=== PATIENT | female | born 1950 | race Caucasian/White ===

== ENCOUNTER 2017-12-23 07:46 | Inpatient (IN) | payer OTHER ==
[~2017-12-23] VITALS: Ht 167.6 cm; Wt 66.9 kg
[~2017-12-23 07:46] MED LIST: ALDACTONE25 MG PO; AMOXICILLIN500 M2 PO; AQUACEL1 EACH TOP; ASPIRIN EC81 M1 PO; AUGMENTIN 500-1 EACH PO; CALCIUM + D SO1 EACH PO; CLORAZEPATE DI7.5 M1 PO; COUMADIN1 M1 PO; FIBER-STAT15 GM/30 M PO; FUROSEMIDE40 M1 PO; LASIX20 M1 PO; LIPITOR40 M1 PO; METOPROLOL SUC100 M2 PO; MULTIPLE VITAM1 EAC2 PO; MYRBETRIQ25 M1 PO; NYSTATIN15 GM TOP; OMEPRAZOLE20 M3 PO; PAIN RELIEVER500 MG PO; PREDNISONE5 M1 PO; PROBIOTIC1 EACH PO; TYLENOL PM EX-1 EACH PO; WARFARIN SODIUM1 M1 PO; WARFARIN SODIUM2 M1 PO
--- NOTE | 2017-12-23 07:50 | ED GENERAL ADULT ---
History of Present Illness General Chief Complaint: Lower Extremity Problems Stated Complaint: BIBA L HEEL PAIN Source: patient Exam Limitations: no limitations Vital Signs & Intake/Output Vital Signs & Intake/Output Vital Signs Date Time Temp Pulse Resp B/P B/P Pulse O2 O2 Flow FiO2 Mean Ox Delivery Rate 12/23 1802 99.0 86 16 110/60 96 Room Air 12/23 1710 98.6 101 16 104/52 97 Room Air 12/23 1509 98.3 88 14 91/51 97 Room Air 12/23 1300 98.2 12/23 1110 102.0 12/23 0958 99.8 110 20 104/54 96 Room Air 12/23 0820 94 Room Air 12/23 0752 99.9 116 20 102/52 95 Room Air Allergies Coded Allergies: latex (Severe, ITCHING 01/19/16) adhesive tape (PAPER TAPE ONLY 01/19/16) cephalexin (SWELLING OF THE FACE 01/19/16) clindamycin (UNKNOWN 01/19/16) strawberry (HIVES/RASH 01/19/16) carvedilol (Severe, SEVERE DIARRHEA 11/22/16) Reconcile Medications Acetaminophen (Pain Reliever) 500 MG CAPSULE 1 CAP PO PRN PAIN (Reported) Acetaminophen/Diphenhydramine (Tylenol Pm Ex-Strength Caplet) 1 EACH TABLET 0.5 TAB PO PRN SLEEP/PAIN (Reported) Amoxicillin 500 MG CAPSULE 4 CAP PO AD PRIOR TO DENTAL APPT (Reported) Aspirin (Ecotrin*) 81 MG TABLET.DR 1 TAB PO DAILY HEART/BLOOD (Reported) Atorvastatin Calcium (Lipitor) 40 MG TABLET 1 TAB PO QPM CHOLESTEROL ( Reported) Augmentin (Augmentin 500-125 Tablet) 500 MG-125 MG TABLET 1 TAB PO BID cellulitis Calcium Carb/Vitamin D3/Vit K1 (Calcium + D Soft Chewable Tab) 500 MG CALCIUM-1, 000 UNIT-40 MCG TAB.CHEW 0.5 TAB PO QAM SUPPLEMENT (Reported) Clorazepate Dipotassium 7.5 MG TABLET 1 TAB PO PRN ANXIETY (Reported) Fructooligosaccharides/Polydex (Fiber-Stat 15 Gm/30 Ml Liquid) (Unknown Strength ) LIQUID (Unknown Dose) PO QAM SUPPLEMENT (Reported) Furosemide (Lasix) 20 MG TABLET 1 TAB PO 1330 DIUETIC (Reported) Furosemide 40 MG TABLET 1 TAB PO QAM DIURETIC (Reported) Hydrocolloid Dressing (Aquacel) 0.39" X 18" BANDAGE 1 LYNDSEY TOP DAILY ulcer Lactobacillus Acidophilus (Probiotic) (Unknown Strength) CAPSULE (Unknown Dose ) PO QAM PROBIOTIC (Reported) Losartan Potassium 25 MG TABLET 1 TAB PO DAILY FOR MY HEART (Reported) Metoprolol Succinate 100 MG TAB.ER.24H 1 TAB PO QAM HEART/BP (Reported) Mirabegron (Myrbetriq) 25 MG TAB.ER.24H 1 TAB PO QAM BLADDER (Reported) Multivitamin (Multiple Vitamins) 1 EACH TABLET 1 TAB PO DAILY SUPPLEMENT ( Reported) Nystatin 100,000 UNIT/GRAM OINT...G. 1 LYNDSEY TOP PRN SKIN (Reported) apply to affected area(s) Omeprazole 20 MG TABLET.DR 1 TAB PO DAILY GI (Reported) Prednisone 5 MG TABLET 1 TAB PO BID RA (Reported) Spironolactone (Aldactone) 25 MG TABLET 12.5 MG PO QAM DIURETIC (Reported) Valsartan (Diovan) 40 MG TABLET 1 TAB PO QAM BP (Reported) Warfarin Sodium 1 MG TABLET 1 TAB PO QPM BLOOD THINNER (Reported) Triage Nurses Notes Reviewed? yes Onset: Abrupt Duration: day(s): Timing: single episode today HPI: 67 year old female presents to the emergency department via ambulance for left heel pain and a sore on her left great toe since yesterday. She states a history of arthritis, she has bilateral dorsalis pedis pulses. Both feet are the same temperature. She does have a small callus with a abrasion on it on the left great toe inferior aspect. Of significance is that she has substantial left heel soft tissue swelling and extreme tenderness. Past History Travel History Traveled to [place] past 21 day No Medical History Any Pertinent Medical History? see below for history Neurological: TREMORS EENT: NONE Cardiovascular: hypertension, myocardial infarction, STENTS Respiratory: NONE Gastrointestinal: NONE Hepatic: NONE Renal: NONE Musculoskeletal: rheumatoid arthritis, BROKEN PELVIS Psychiatric: NONE Endocrine: NONE Blood Disorders: NONE Cancer(s): NONE ADMINISTRATIVE MANAGER/Reproductive: NONE Tetanus Vaccine: 12/27/11 Surgical History Surgical History: knee replacement Psychosocial History Who do you live with Spouse Services at Home N/A What is your primary language Slovenian Family History Hx Contributory? No Review of Systems Review of Systems Constitutional: Reports: see HPI. Denies: fever. EENTM: Reports: no symptoms. Denies: blurred vision, double vision, visual changes. Respiratory: Reports: no symptoms. Denies: short of breath. Cardiovascular: Reports: no symptoms. Denies: chest pain, edema. GI: Reports: no symptoms. Genitourinary: Reports: no symptoms. Musculoskeletal: Reports: see HPI. Skin: Reports: no symptoms. Neurological/Psychological: Reports: no symptoms. Hematologic/Endocrine: Reports: no symptoms. Immunologic/Allergic: Reports: no symptoms. All Other Systems: Reviewed and Negative Physical Exam Physical Exam General Appearance: well developed/nourished, alert, awake, moderate distress Head: atraumatic, normal appearance Eyes: Bilateral: normal appearance, PERRL, EOMI. Ears, Nose, Throat: normal ENT inspection Neck: normal inspection, full range of motion Respiratory: normal breath sounds, no respiratory distress, lungs clear Cardiovascular: regular rate/rhythm Peripheral Pulses: 4+ radial (R), 4+ radial (L) Gastrointestinal: soft, non-tender Back: normal inspection, normal range of motion Extremities: Left calcaneaus swelling and pain,ulceration on the left great toe Neurologic/Psych: no motor/sensory deficits, awake, alert, oriented x 3 Skin: intact, normal color, warm/dry Core Measures ACS in differential dx? No CVA/TIA Diagnosis: No Sepsis Present: No Sepsis Focused Exam Completed? No Progress Differential Diagnoses I considered the following diagnoses in my evaluation of the patient: [ Osteomyelitis, fracture, arthritis] Plan of Care: Orders Procedure Date/time Status CBC WITHOUT DIFFERENTIAL 12/24 0600 Active BASIC ELECTROLYTES PLUS BUN&CR 12/24 0600 Active Regular Diet 12/23 D Active URINALYSIS 12/23 2005 Active BLOOD CULTURE 12/23 2002 Active LACTIC ACID 12/23 1928 Active Weight 12/23 1820 Active Vital Signs 12/23 1820 Active Teach/Educate 12/23 182 Active Pain Treatment and Response 12/23 182 Active Nutritional Intake, Monitor 12/23 1820 Active Isolation 12/23 1820 Active Intake & Output 12/23 1820 Active Patient Care Conference 12/23 1820 Active Activity/Ambulation 12/23 1820 Active Pathway - chart 12/23 1802 Active Pathway - chart 12/23 1801 Active House Staff 12/23 1801 Active LACTIC ACID 12/23 1628 Complete Patient Data 12/23 1618 Active Patient Data 12/23 1617 Active EKG 12/23 1538 Active ED Holding Orders 12/23 1536 Active Admit to inpatient 12/23 1536 Active Vital Signs 12/23 1536 Active Code Status 12/23 1536 Active Saline Lock 12/23 0900 Active WESTERGREN SED RATE 12/23 0900 Complete COMPREHENSIVE METABOLIC PANEL 12/23 09 Complete CBC WITHOUT DIFFERENTIAL 12/23 09 Complete Intake & Output 12/23 0818 Active XRY-PORTABLE CHEST XRAY 12/23 UNK Active VTE Mechanical Prophylaxis 12/23 UNK Active MISSING MEDICATION FORM 12/23 UNK Active Current Medications Sig/Narendra Start time Last Medication Dose Stop Time Status Admin Enoxaparin Sodium 40 MG DAILY 12/24 0900 AC (Lovenox) Prednisone 40 MG DAILY 12/23 1901 AC Acetaminophen 650 MG ONCE ONE 12/23 1100 CAN (Tylenol) 12/23 1101 Laboratory Tests 12/23/17 1658: Lactic Acid 1.0 12/23/17 0945: Anion Gap 12, Estimated GFR > 60, BUN/Creatinine Ratio 24.4, Glucose 79, Calcium 8.2 L, Total Bilirubin 1.1, AST 24, ALT 36, Alkaline Phosphatase 71, Total Protein 5.9 L, Albumin 3.0 L, Globulin 2.9, Albumin/Globulin Ratio 1.0 L, CBC w Diff MAN DIFF ORDERED, RBC 3.77 L, MCV 87.1, MCH 28.9, MCHC 33.2, RDW 17.0 H , MPV 6.8 L, Gran % 91.3 H, Lymphocytes % 7.2 L, Monocytes % 0.9 L, Eosinophils % 0.1, Basophils % 0.5, Absolute Granulocytes 14.9 H, Absolute Lymphocytes 1.2, Absolute Monocytes 0.1, Absolute Eosinophils 0, Absolute Basophils 0.1, Platelet Estimate ADEQUATE, Normocytic RBCs VERIFIED, Normochromic RBCs VERIFIED, ESR Westergren 105 H Microbiology 12/23 2002 BLOOD: Blood Culture - ORD Initial ED EKG: NSR Prior EKG: unchanged Departure Departure Disposition: STILL A PATIENT Condition: Stable Clinical Impression Primary Impression: Rheumatoid arthritis Secondary Impressions: Leukocytosis Referrals: Tate Rivero DO (PCP/Family) Departure Forms: Customer Survey General Discharge Information Comments IMPRESSION: 1. Difficult exam given osteopenia and flexion deformities in the forefoot. 2. As discussed above, there is subtle cortical irregularity at the plantar surface of the calcaneus with overlying soft tissue swelling, raising the suspicion of osteomyelitis. Close clinical correlation is requested. This can be further assessed with MRI scan. 2. Suspect postsurgical changes at the second, third and fourth metatarsophalangeal joints with resections of the metatarsal heads. 3. Hammertoe deformities of the toes is seen and there appears to be fusion across the first and the fifth metatarsophalangeal joint. 4. There is likely fusion across several of the lateral aspects of the intertarsal joints. DICTATED BY: Nuria Torres MD DATE/TIME DICTATED:12/23/17924 HEATER WORKER:FAIZA DATE/TIME TRANSCRIBED:12/23/17924 CONFIDENTIAL, DO NOT COPY WITHOUT APPROPRIATE AUTHORIZATION. <Electronically signed in Other Vendor System> SIGNED BY: Nuria Torres MD 0937 The patient's foot x-ray was concerning for osteomyelitis. She has leukocytosis and elevated sedimentation rate she does admit to recent fevers. MRI was done and was inconclusive to exclude osteomyelitis.she was therefore admitted to the hospital for podiatry consultation and further evaluation. Admission Note Spoke With: Lanre Chaudhry MD Documentation of Exam: Documentation of any treatments & extenuating circumstances including Concerns Regarding Discharge (functional status, medication knowledge or non-compliance, living conditions, etc.) that warrant an admission rather than observation: [The patient needs admission for podiatry consultation, infectious disease consultation, consideration of surgical biopsy and/or debridement to exclude osteomyelitis] The family requested I call Dr. Lopez, he was paged. Critical Care Note Critical Care Note Critical Care Time: non-applicable
--- NOTE | 2017-12-23 09:37 | RADIOLOGY REPORT ---
EXAMINATION: CR CALCANEUS, LEFT CR HEEL, LEFT CLINICAL INFORMATION: Left foot pain and swelling. Rule out fracture. COMPARISON: Left calcaneus films dated 07/17/2007. TECHNIQUE: Lateral and axial views of the left calcaneus and frontal and lateral views of the left foot were obtained. FINDINGS: No acute fracture or dislocation. Diffuse osteopenia. Large plantar calcaneal spur is seen. There is irregularity of the inferior cortical margin of the calcaneus, which is indistinct in places and new from prior exam, suggesting subtle erosions. Overlying soft tissue swelling is seen. Findings are nonspecific but raise the suspicion of osteomyelitis. There are flexion deformities of the toes, limiting assessment. There appears to be fusion across the first and possibly the fifth metatarsophalangeal joint. Plantar subluxations are seen at the second through fifth metatarsophalangeal joints, consistent with hammertoe deformities. 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 Talar beaking is noted. There is indistinctness of the cuneiforms and there appears to be partial fusion across the lateral aspect of the tarsal bones. IMPRESSION: 1. Difficult exam given osteopenia and flexion deformities in the forefoot. 2. As discussed above, there is subtle cortical irregularity at the plantar surface of the calcaneus with overlying soft tissue swelling, raising the suspicion of osteomyelitis. Close clinical correlation is requested. This can be further assessed with MRI scan. 2. Suspect postsurgical changes at the second, third and fourth metatarsophalangeal joints with resections of the metatarsal heads. 3. Hammertoe deformities of the toes is seen and there appears to be fusion across the first and the fifth metatarsophalangeal joint. 4. There is likely fusion across several of the lateral aspects of the intertarsal joints.
[2017-12-23 09:52] LABS: ABSOLUTE BASOPHIL COUNT 0.1 /CUMM (0.0-0.2); ABSOLUTE EOSINOPHIL COUNT 0 /CUMM (0.0-0.7); ABSOLUTE GRANULOCYTE CT 14.9 /CUMM (1.4-6.5); ABSOLUTE LYMPH COUNT 1.2 /CUMM (1.2-3.4); ABSOLUTE MONOCYTE COUNT 0.1 /CUMM (0.10-0.60); BASOPHIL % 0.5 % (0.0-2.0); EOSINOPHIL % 0.1 % (0-5); GRANULOCYTE % 91.3 % (42.2-75.2); HEMATOCRIT 32.9 % (37-47); MEAN CORPUSCULAR HGB 28.9 PG (27.0-31.0); MEAN CORPUSCULAR HGB CONC 33.2 G/DL (33.0-37.0); MEAN CORPUSCULAR VOLUME 87.1 FL (81.0-99.0); MEAN PLATELET VOLUME 6.8 FL (7.4-10.4); PLATELET COUNT 287 /CUMM (130-400); RED BLOOD CELL CT 3.77 /CUMM (4.20-5.40); WHITE BLOOD CELL COUNT 16.3 /CUMM (4.8-10.8)
[2017-12-23] MEDS ORDERED: LOSARTAN POTASS25 M1 PO (13:25)
--- NOTE | 2017-12-23 14:14 | MRI REPORT ---
EXAMINATION: MR FOOT WITHOUT AND WITH CONTRAST, LEFT CLINICAL INFORMATION: Left heel pain and swelling. COMPARISON: Radiographs 12/23/2017 TECHNIQUE: MRI without and with intravenous administration of 7 mL Gadavist is performed on a high-field scanner. FINDINGS: There is a complex collection with unenhancing debris and fluid measuring approximately 4.4 right 3.5 x 2.1 cm throughout medial aspect of the heel pad. The fluid projects through a 5 mm full-thickness tear/defect of the origin of the middle slip of the plantar fascia where there is a heel spur, and cortical irregularity which may be in part postsurgical. Correlate clinically. Along this cortical irregularity, there is no significant marrow edema or fatty marrow replacement to indicate active osteomyelitis. However, at the posterior aspect, there is a tubular/linear extension of T2 signal hyperintensity extending into the posterior aspect of the calcaneus with surrounding bone marrow edema and enhancement, and slight loss of T1 marrow signal intensity suggesting an intraosseous sinus tract with mild osteomyelitis. Anteromedially, there is an additional tubular fluid signal intensity structure extending into the calcaneus although this lacks surrounding edema or enhancement. There is diffuse subcutaneous edema. Prominent accessory navicular. 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 No ankle joint effusion or talar OCD. The Achilles tendon, posterior tibialis tendon, peroneal tendons, flexor and extensor tendons appear intact. IMPRESSION: Complex subcutaneous collection of the heel pad extending through a full-thickness defect/tear of the plantar fascia origin, and along the plantar aspect of the calcaneus where there is chronic appearing cortical irregularity. At the posterior aspect, there is the appearance of a sinus tract extending 1.5-2.0 cm into the calcaneus with surrounding bone marrow edema and enhancement.
--- NOTE | 2017-12-23 16:56 | History & Physical ---
Alix Howard 12/23/17 8620: General Information and HPI MD Statement: I have seen and personally examined FLORENCIA DAVIS and documented this H& P. The patient is a 67 year old F who presented with a patient stated chief complaint of intractable heel pain . 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 According to the patient, she was resting in her recliner in the evening yesterday. At about 7, she got up to use the bathroom, and found her to be severely limited by the pain that came on suddenly. It did not radiate up her leg or down her foot, has not gotten better or worse since. Patient reports that she has frequent rheumatoid arthritis flares, but none of the flares that she has never had pain as severe as her heel pain at present. Notably, the patient states she got a "stomach virus" last week. She had severe diarrhea, having a bowel movement almost every 20 minutes last Thursday, which was yellowish, no mucus, no blood. She had a T-max of 102.5 and her temperature has been fluctuating between 99-102 throughout the last week. The patient states the diarrhea has greatly improved, but she does not have an appetite. The patient states that she got her blood work done last month and her blood glucose and HbA1c are within normal limits. The patient denies weakness, chest pain, palpitations, shortness of breath, bowel or bladder symptoms. Allergies/Medications Allergies: Coded Allergies: latex (Severe, ITCHING 01/19/16) adhesive tape (PAPER TAPE ONLY 01/19/16) cephalexin (SWELLING OF THE FACE 01/19/16) clindamycin (UNKNOWN 01/19/16) strawberry (HIVES/RASH 01/19/16) carvedilol (Severe, SEVERE DIARRHEA 11/22/16) Home Med list Acetaminophen (Pain Reliever) 500 MG CAPSULE 1 CAP PO PRN PAIN (Reported) Acetaminophen/Diphenhydramine (Tylenol Pm Ex-Strength Caplet) 1 EACH TABLET 0.5 TAB PO PRN SLEEP/PAIN (Reported) Amoxicillin 500 MG CAPSULE 4 CAP PO AD PRIOR TO DENTAL APPT (Reported) Aspirin (Ecotrin*) 81 MG TABLET.DR 1 TAB PO DAILY HEART/BLOOD (Reported) Atorvastatin Calcium (Lipitor) 40 MG TABLET 1 TAB PO QPM CHOLESTEROL ( Reported) Augmentin (Augmentin 500-125 Tablet) 500 MG-125 MG TABLET 1 TAB PO BID cellulitis Calcium Carb/Vitamin D3/Vit K1 (Calcium + D Soft Chewable Tab) 500 MG CALCIUM-1, 000 UNIT-40 MCG TAB.CHEW 0.5 TAB PO QAM SUPPLEMENT (Reported) Clorazepate Dipotassium 7.5 MG TABLET 1 TAB PO PRN ANXIETY (Reported) Fructooligosaccharides/Polydex (Fiber-Stat 15 Gm/30 Ml Liquid) (Unknown Strength ) LIQUID (Unknown Dose) PO QAM SUPPLEMENT (Reported) Furosemide (Lasix) 20 MG TABLET 1 TAB PO 1330 DIUETIC (Reported) Furosemide 40 MG TABLET 1 TAB PO QAM DIURETIC (Reported) Hydrocolloid Dressing (Aquacel) 0.39" X 18" BANDAGE 1 LYNDSEY TOP DAILY ulcer Lactobacillus Acidophilus (Probiotic) (Unknown Strength) CAPSULE (Unknown Dose ) PO QAM PROBIOTIC (Reported) Losartan Potassium 25 MG TABLET 1 TAB PO DAILY FOR MY HEART (Reported) Metoprolol Succinate 100 MG TAB.ER.24H 1 TAB PO QAM HEART/BP (Reported) Mirabegron (Myrbetriq) 25 MG TAB.ER.24H 1 TAB PO QAM BLADDER (Reported) Multivitamin (Multiple Vitamins) 1 EACH TABLET 1 TAB PO DAILY SUPPLEMENT ( Reported) Nystatin 100,000 UNIT/GRAM OINT...G. 1 LYNDSEY TOP PRN SKIN (Reported) apply to affected area(s) Omeprazole 20 MG TABLET.DR 1 TAB PO DAILY GI (Reported) Prednisone 5 MG TABLET 1 TAB PO BID RA (Reported) Spironolactone (Aldactone) 25 MG TABLET 12.5 MG PO QAM DIURETIC (Reported) Valsartan (Diovan) 40 MG TABLET 1 TAB PO QAM BP (Reported) Warfarin Sodium 1 MG TABLET 1 TAB PO QPM BLOOD THINNER (Reported) Past History Travel History Traveled to [place] past 21 day No Medical History Neurological: TREMORS EENT: NONE Cardiovascular: hypertension, myocardial infarction, STENTS Respiratory: NONE Gastrointestinal: NONE Hepatic: NONE Renal: NONE Musculoskeletal: rheumatoid arthritis, BROKEN PELVIS Psychiatric: NONE Endocrine: NONE Blood Disorders: NONE Cancer(s): NONE CHEMICAL SPRAYER/Reproductive: NONE Tetanus Vaccine: 12/27/11 Surgical History Surgical History: knee replacement Past Family/Social History Psychosocial History Services at Home: N/A ETOH Use: denies use Illicit Drug Use: denies illicit drug use Review of Systems Review of Systems Constitutional: Reports: fever. Denies: chills, malaise. Cardiovascular: Denies: orthopena, palpitations, peripheral edema. Respiratory: Denies: cough, hemoptysis, short of breath. GI: Reports: diarrhea, changes in stool. Denies: abdominal pain, constipation, distention, bowel incontinence, melena, nausea, bloody stool, vomiting. Musculoskeletal: Reports: joint pain, joint swelling. Skin: Denies: change in skin color, change in hair/nails. Neurological/Psychological: Denies: anxiety, cognitive dysfunction, confusion, depressed, emotional problems , headache, numbness, paresthesia, tingling. Hematologic/Endocrine: Denies: bleeding, polyuria, polydipsia. Exam & Diagnostic Data Last 24 Hrs of Vital Signs/I&O Vital Signs Date Time Temp Pulse Resp B/P B/P Pulse O2 O2 Flow FiO2 Mean Ox Delivery Rate 12/23 1710 98.6 101 16 104/52 97 Room Air 12/23 1509 98.3 88 14 91/51 97 Room Air 12/23 1300 98.2 12/23 1110 102.0 12/23 0958 99.8 110 20 104/54 96 Room Air 12/23 0820 94 Room Air 12/23 0752 99.9 116 20 102/52 95 Room Air Intake & Output 12/23 1600 12/23 0800 12/23 0000 Intake Total 0 Output Total Balance 0 Intake, Oral 0 Patient 145 lb Weight Weight Reported by Patient Measurement Method Physical Exam General Appearance Alert, Oriented X3, Cooperative, No Acute Distress Skin No Rashes Skin Temp/Moisture Exam: Warm/Dry HEENT Atraumatic Cardiovascular Regular Rate, Normal S1, Normal S2 Lungs Clear to Auscultation Abdomen Normal Bowel Sounds, Soft Neurological Normal Gait, Normal Speech, Strength at 5/5 X4 Ext, head nodding tremors Extremities calcaneal swelling and tenderness Vascular Pulses Symmetrical, dorsalis pedis pulse present on both feet Assessment/Plan Assessment: 57-year-old female with past medical history of hypertension, MD, rheumatoid arthritis, 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 On examination, she has multiple deformities in her hands and feet her rheumatoid arthritis. There is significant swelling, tenderness and the left calcaneum. Vitals in the ED were T-max: 102, BP: 91/51, HR: 88 Her white blood count: 16.3, Hb: 10.9, and Na: 132, K: 3.4. Her creatinine was 0.9, calcium: 8.2, total protein: 5.9 with an albumin of 3.0. Her ESR is 105. Lactate was normal at 1 Foot X-ray IMPRESSION: 1. Difficult exam given osteopenia and flexion deformities in the forefoot. 2. As discussed above, there is subtle cortical irregularity at the plantar surface of the calcaneus with overlying soft tissue swelling, raising the suspicion of osteomyelitis. Close clinical correlation is requested. This can be further assessed with MRI scan. 2. Suspect postsurgical changes at the second, third and fourth metatarsophalangeal joints with resections of the metatarsal heads. 3. Hammertoe deformities of the toes is seen and there appears to be fusion across the first and the fifth metatarsophalangeal joint. 4. There is likely fusion across several of the lateral aspects of the intertarsal joints. Foot MRI Complex subcutaneous collection of the heel pad extending through a full-thickness defect/tear of the plantar fascia origin, and along the plantar aspect of the calcaneus where there is chronic appearing cortical irregularity. At the posterior aspect, there is the appearance of a sinus tract extending 1.5-2.0 cm into the calcaneus with surrounding bone marrow edema and enhancement. An MRI dated 08/02/2007 has been made available for comparison. The complex collection/structure along the heel pad was present in 2007 and appears similar, although now has a fluid signal component. Additionally, with the clinical history of rheumatoid arthritis as per Dr. Meyers, this most likely represents a large, chronic rheumatoid nodule. The cortical irregularity along the plantar surface of the calcaneus is similar with no new or active erosion. The tubular-appearing fluid signal intensity structures within the calcaneus are also present on the previous study, possibly prominent penetrating vessels or old sinus tracts. However, the new fluid signal component and surrounding soft tissue edema of the rheumatoid nodule suggest an active inflammatory process likely related to the patient's rheumatoid arthritis, which likely accounts for the marrow edema and enhancement that surrounds the more posterior of the sinus tracts. In the absence of a new soft tissue defect/wound, infection and osteomyelitis is less likely. Problems 1. Left heel swelling and pain (osteomyelitis vs RA flare) 2. Rheumatoid arthritis 3. Hypertension 4. Leukocytosis 4. Chronic steroid use PLAN: 1. Left heel swelling and pain -An MRI showed the presence of complex collection/structure along the pad with the fluid component. The collection/structure is chronic, the fluid combination surrounding soft tissue edema of a presumed rheumatoid nodule is a recent finding. -Leukocytosis of 16.3: Recent gastroenteritis versus steroid-induced demargination versus osteomyelitis versus rheumatoid flare -She does not have appear to have risk factors for osteomyelitis: no trauma, no diabetes, recent infection -He does have an ESR of 105, we will start her on high-dose corticosteroids, and reassess -We will aspirate the joint fluid for analysis and culture sensitivity in the AM tomorrow. -ID consult appreciated. We will order blood cultures, urine cultures. We would hold off on the antibiotics for now. -We will order a chest X-ray -Rheumatology consult in the morning 2. Lekocytosis -Steroid induced vs rhematoid flare vs Infection -We will hold off on antibiotics pending urine cultures, blood cultures and chest X-ray -Trend CBC 3. Hypertension We will continue the patient on her home meds DVT prophylaxis Code status: Full code As Ranked By This Provider Problem List: 1. Leukocytosis 2. Rheumatoid arthritis 3. Heel pain Core Measures/Misc (01/25) Acute Coronary Syndrome ACS Diagnosis: No Congestive Heart Failure Congestive Heart Failure Diagnosis No Cerebrovascular Accident CVA/TIA Diagnosis: No VTE (View Protocol) VTE Risk Factors Age>40 No Mechanical VTE Prophylaxis d/t N/A MechProphylax Ordered No VTE Pharm Prophylaxis d/t NA PharmProphylax ordered Sepsis (View protocol) Sepsis Present: No If YES complete Sepsis Event Note If YES complete Sepsis Event Note Maurisio NAVARRO,[facility] 12/23/170: Core Measures/Misc (01/25) Sepsis (View protocol) If YES complete Sepsis Event Note If YES complete Sepsis Event Note Resident Review Statement Resident Statement: examined this patient, discussed with merchandising internship, agreed with merchandising internship Other Findings: 67-year-old lady with a past medical history significant for hypertension, hyperlipidemia, CAD status post stent placement in 2010, rheumatoid arthritis on prednisone 5 mg daily, previously history of MRSA osteomyelitis, presented to [place] ED with 1 day acute onset of left heel pain. No report of trauma. She did report a week history of chills with associated upper respiratory infection. At the ED she was noted to have a temperature of 102, tachycardia with a heart rate of 110, and an elevated white count of 16.3. MRI of the left heel was remarkable for complex subcutaneous collection and chronic appearing cortical irregularity with appearance of a sinus tract in the posterior aspect. A review of her old MRI dated July 2007 showed that most of the patient finding today are chronic without any change with the exception of soft tissue edema the rheumatoid nodule. Impression * Fevers. Most likely secondary to rheumatoid flareup given the history of rheumatoid arthritis. However the MAXIMUM TEMPERATURE of 102, despite being on prednisone is always a concern for possible infectious etiology such as wound infection/osteomyelitis. However the acute onset within 1 day of the calcaneal pain and swelling goes against osteomyelitis or a brewing infection. She does have a somewhat chronic appearing nonhealing left great toe ulcer at the plantar aspect, which could be a source of infection. * Left heel pain with the sudden acute onset. No erythema or cellulitic appearance which most likely suggest infection. She is most likely experiencing a rheumatoid arthritis flare up, which seems to be supported by the timeframe of her symptoms (acute onset). * Leukocytosis. Most likely secondary to stress due to stress demargination from chronic prednisone use. * Mild hyponatremia. Most likely secondary to Lasix use and decreased fluid intake. * Mild hypokalemia. Possibly secondary to Lasix use Plan Admit to general medicine floor Replenish potassium Will give 500 mls normal saline for hydration (patient does take Lasix at home for lower extremity edema, but we do not have any information on high last echo/ EF). Will encourage increased oral fluid intake. We'll hold off on the furosemide Increase prednisone dose to 40 mg to treat for rheumatoid arthritis flareup Acetaminophen as needed for fevers Hold off any antibiotics per ID recommendation Blood cultures 2 UA and urine culture Chest x-ray Will trend CBC tomorrow morning Will obtain rheumatology recommendations Orthopedic (DR LEWIS consult, per pt preference). CODE STATUS; full DVT prophylaxis: Patient is on Coumadin Lanre Chaudhry MD 12/23/17 2227: Core Measures/Misc (01/25) Sepsis (View protocol) If YES complete Sepsis Event Note If YES complete Sepsis Event Note Attending MD Review Statement Attending Statement Attending MD Statement: examined this patient, discuss w/resident/PA/MAKE READY MECHANIC, agreed w/resident/PA/MAKE READY MECHANIC, discussed with family, reviewed EMR data (avail), reviewed images, amended to note Attending Assessment/Plan: The patient is a 67 yo female with h/o HTN, CAD (s/p MD/stents), s/p TKR, h/o RA (on chronic Prednisone therapy), h/o non-healing left 1st toe ulcer (followed by podiatry) who presented with sudden onset of severe left heel pain. She had 1 week h/o fevers and diarrhea (felt to be viral) prior to this. In the ED had elevated WBC of 16 K and spiked a temperature of 102 degrees (on Prednisone therapy). MRI of foot done shows complex collection along heel pad- similar to 2008 study. There is also evidence of soft tissue edema. Physical Exam: VS: T 102.0-99.8, P 116-88, R 20, BP 102/52-91/51, PO 97% RA HEENT: eyes- PERRLA, EOMI emily- moist mucosa Neck: no adenopathy, JVD, bruits Chest: clear Cor: RR nl S1, S2 w/o murm Abd: BS+, soft, NT, - HSM Ext: no LE edema, + mild tender left calcaneal area (medial) - mild erythema w/o warmth; + joint deformities hands (RA) Neuro: alert & oriented x 3, non-focal exam Labs/Tests- as above Impression/Plan: #Calcaneal Pain- MRI results as above. The patient has known RA and has had prior ?infection in past (?MRSA) 10 years ago. She is known to ID (Dr. Black) . Concern regarding fever 102 and leukocytosis with elevated ESR. Her fever has occurred on chronic Prednisone therapy. Due to past experiences, she wishes orthopedic evaluation and wishes to avoid biopsy. The ED did contact Dr. Denton, however the patient wishes ortho input (Dr. Lopez) who knows her previously. ID input appreciated as she is known to Dr. Black. Plan: Admit to medical service. No IV antibiotics at present as per ID- will increase Prednisone to treat as if RA flare. Rheumatology consult- Dr. Amaya. Orthopedic consult- Dr. Lopez; Podiatry input- Dr. Denton. Blood cultures done, initial lactate nl. Will increase Prednisone dose (treat as RA flare) to 40 mg daily. #Rheumatoid - this may represent a flare of RA. Plan: Increase Prednisone as per Dr. Black. Rheumatology consult. #H/O Left 1st Toe Ulcer- chronic- followed by outside Podiatry. Has been stable as per patient. Plan: Podiatry and/or orthopedic input. #Hyperlipidemia- on Atorvastatin. Plan: Continue Atorvastatin. #HTN/Afib- BP as above. Plan: Continue Metoprolol, Furosemide, Losartan (?Valsartan), Spironolactone. #GERD- no symptoms. Plan: Continue Omeprazole.
[2017-12-23 18:02] VITALS: BP 110/60
--- NOTE | 2017-12-23 18:39 | Cons- Infect Disease ---
General Information and HPI Consulting Request Date of Consult: 12/23/17 Requested By: Lanre Chaudhry MD Reason for Consult: Rule out osteomyelitis of the left heel Source of Information: patient, family, old records History of Present Illness: This is a 67-year-old woman with a history of hypertension, coronary artery disease, status post OK and stents, and rheumatoid arthritis, status post knee replacement, maintained on Prednisone 5 mg twice daily by Dr. Amaya, followed by Podiatry (Dr. Vieyra) for a nonhealing ulcer on the plantar aspect of her left great toe for the past few months, with a one week history of intermittent fevers and diarrhea, admitted today with a one day history of severe left heel pain. On admission she was febrile to 102. Laboratory data revealed a white blood cell count of 16,000, BUN/creatinine 22 and 0.9, with normal liver enzymes. X-ray of the left heel revealed a subtle cortical irregularity at the plantar surface of the calcaneus with overlying soft tissue swelling. An MRI of the left foot reveals a complex collection/structure along the heel pad, unchanged from a previous MRI in 2007, likely representing a large, chronic rheumatoid nodule; cortical irregularity along the plantar surface of the calcaneus also similar to the previous MRI, with a tubular appearing fluid signal intensity structure within the calcaneus also present previously; a new fluid signal component with surrounding soft tissue edema, suggesting an active inflammatory process. Allergies/Medications Allergies: Coded Allergies: latex (Severe, ITCHING 01/19/16) adhesive tape (PAPER TAPE ONLY 01/19/16) cephalexin (SWELLING OF THE FACE 01/19/16) clindamycin (UNKNOWN 01/19/16) strawberry (HIVES/RASH 01/19/16) carvedilol (Severe, SEVERE DIARRHEA 11/22/16) Home Med List: Acetaminophen (Pain Reliever) 500 MG CAPSULE 1 CAP PO PRN PAIN (Reported) Acetaminophen/Diphenhydramine (Tylenol Pm Ex-Strength Caplet) 1 EACH TABLET 0.5 TAB PO PRN SLEEP/PAIN (Reported) Amoxicillin 500 MG CAPSULE 4 CAP PO AD PRIOR TO DENTAL APPT (Reported) Aspirin (Ecotrin*) 81 MG TABLET.DR 1 TAB PO DAILY HEART/BLOOD (Reported) Atorvastatin Calcium (Lipitor) 40 MG TABLET 1 TAB PO QPM CHOLESTEROL ( Reported) Augmentin (Augmentin 500-125 Tablet) 500 MG-125 MG TABLET 1 TAB PO BID cellulitis Calcium Carb/Vitamin D3/Vit K1 (Calcium + D Soft Chewable Tab) 500 MG CALCIUM-1, 000 UNIT-40 MCG TAB.CHEW 0.5 TAB PO QAM SUPPLEMENT (Reported) Clorazepate Dipotassium 7.5 MG TABLET 1 TAB PO PRN ANXIETY (Reported) Fructooligosaccharides/Polydex (Fiber-Stat 15 Gm/30 Ml Liquid) (Unknown Strength ) LIQUID (Unknown Dose) PO QAM SUPPLEMENT (Reported) Furosemide (Lasix) 20 MG TABLET 1 TAB PO 1330 DIUETIC (Reported) Furosemide 40 MG TABLET 1 TAB PO QAM DIURETIC (Reported) Hydrocolloid Dressing (Aquacel) 0.39" X 18" BANDAGE 1 LYNDSEY TOP DAILY ulcer Lactobacillus Acidophilus (Probiotic) (Unknown Strength) CAPSULE (Unknown Dose ) PO QAM PROBIOTIC (Reported) Losartan Potassium 25 MG TABLET 1 TAB PO DAILY FOR MY HEART (Reported) Metoprolol Succinate 100 MG TAB.ER.24H 1 TAB PO QAM HEART/BP (Reported) Mirabegron (Myrbetriq) 25 MG TAB.ER.24H 1 TAB PO QAM BLADDER (Reported) Multivitamin (Multiple Vitamins) 1 EACH TABLET 1 TAB PO DAILY SUPPLEMENT ( Reported) Nystatin 100,000 UNIT/GRAM OINT...G. 1 LYNDSEY TOP PRN SKIN (Reported) apply to affected area(s) Omeprazole 20 MG TABLET.DR 1 TAB PO DAILY GI (Reported) Prednisone 5 MG TABLET 1 TAB PO BID RA (Reported) Spironolactone (Aldactone) 25 MG TABLET 12.5 MG PO QAM DIURETIC (Reported) Valsartan (Diovan) 40 MG TABLET 1 TAB PO QAM BP (Reported) Warfarin Sodium 1 MG TABLET 1 TAB PO QPM BLOOD THINNER (Reported) Past History Travel History Traveled to [place] past 21 day No Medical History Neurological: TREMORS EENT: NONE Cardiovascular: CAD (s/p stents), hypertension, myocardial infarction Respiratory: NONE Gastrointestinal: NONE Hepatic: NONE Renal: NONE Musculoskeletal: rheumatoid arthritis, BROKEN PELVIS Psychiatric: NONE Endocrine: NONE Blood Disorders: NONE Cancer(s): NONE 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 EENTM: Denies: throat pain. Cardiovascular: Denies: chest pain. Respiratory: Denies: cough, short of breath. GI: Denies: abdominal pain, diarrhea, nausea, vomiting. Genitourinary: Reports: no symptoms. All Other Systems: Reviewed and Negative Exam & Diagnostic Data Last 24 Hrs of Vital Signs/I&O Vital Signs Date Time Temp Pulse Resp B/P B/P Pulse O2 O2 Flow FiO2 Mean Ox Delivery Rate 12/23 1710 98.6 101 16 104/52 97 Room Air 12/23 1509 98.3 88 14 91/51 97 Room Air 12/23 1300 98.2 12/23 1110 102.0 12/23 0958 99.8 110 20 104/54 96 Room Air 12/23 0820 94 Room Air 12/23 0752 99.9 116 20 102/52 95 Room Air Intake & Output 12/23 1600 12/23 0800 12/23 0000 Intake Total 0 Output Total Balance 0 Intake, Oral 0 Patient 145 lb Weight Weight Reported by Patient Measurement Method Physical Exam Other Physical Findings: She is awake and alert in no acute distress. T-max 102. Skin reveals no rash. HEENT exam is negative. Neck is supple with no adenopathy. Lungs crackles at the left base. Heart regular rhythm with no murmur. Abdomen is soft, mildly tender on palpation of the lower abdomen, with no guarding or rebound, with positive bowel sounds. Back no CVA tenderness. Extremities marked deformity of both hands; left heel with a small nodule on the medial aspect, mildly tender to palpation, with minimal surrounding erythema; left great toe with mild erythema, with a plantar ulcer, with no surrounding inflammation or drainage; no cyanosis, clubbing or edema of the lower extremities. Neuro is without focality. Last 24 Hours of Lab Results: Laboratory Tests 12/23 12/23 1658 0945 Chemistry Sodium (137 - 145 mmol/L) 132 L Potassium (3.5 - 5.1 mmol/L) 3.4 L Chloride (98 - 107 mmol/L) 101 Carbon Dioxide (22 - 30 mmol/L) 20 L Anion Gap (5 - 16) 12 BUN (7 - 17 mg/dL) 22 H Creatinine (0.5 - 1.0 mg/dL) 0.9 Estimated GFR (>60 ml/min) > 60 BUN/Creatinine Ratio (7 - 25 %) 24.4 Glucose (65 - 99 mg/dL) 79 Lactic Acid (0.7 - 2.1 mmol/L) 1.0 Calcium (8.4 - 10.2 mg/dL) 8.2 L Total Bilirubin (0.2 - 1.3 mg/dL) 1.1 AST (14 - 36 U/L) 24 ALT (9 - 52 U/L) 36 Alkaline Phosphatase (<127 U/L) 71 Total Protein (6.3 - 8.2 g/dL) 5.9 L Albumin (3.5 - 5.0 g/dL) 3.0 L Globulin (1.9 - 4.2 gm/dL) 2.9 Albumin/Globulin Ratio (1.1 - 2.2 %) 1.0 L Hematology CBC w Diff MAN DIFF ORDERED WBC (4.8 - 10.8 /CUMM) 16.3 H RBC (4.20 - 5.40 /CUMM) 3.77 L Hgb (12.0 - 16.0 G/DL) 10.9 L Hct (37 - 47 %) 32.9 L MCV (81.0 - 99.0 FL) 87.1 MCH (27.0 - 31.0 PG) 28.9 MCHC (33.0 - 37.0 G/DL) 33.2 RDW (11.5 - 14.5 %) 17.0 H Plt Count (130 - 400 /CUMM) 287 MPV (7.4 - 10.4 FL) 6.8 L Gran % (42.2 - 75.2 %) 91.3 H Lymphocytes % (20.5 - 51.1 %) 7.2 L Monocytes % (1.7 - 9.3 %) 0.9 L Eosinophils % (0 - 5 %) 0.1 Basophils % (0.0 - 2.0 %) 0.5 Absolute Granulocytes (1.4 - 6.5 /CUMM) 14.9 H Absolute Lymphocytes (1.2 - 3.4 /CUMM) 1.2 Absolute Monocytes (0.10 - 0.60 /CUMM) 0.1 Absolute Eosinophils (0.0 - 0.7 /CUMM) 0 Absolute Basophils (0.0 - 0.2 /CUMM) 0.1 Platelet Estimate (ADEQUATE) ADEQUATE Normocytic RBCs VERIFIED Normochromic RBCs VERIFIED ESR Westergren (0 - 20 MM) 105 H Last 24 Hours of Fredi Results: No cultures Diagnostic Data Recent Imaging Findings: X-ray of the left heel revealed a subtle cortical irregularity at the plantar surface of the calcaneus with overlying soft tissue swelling. MRI of the left foot reveals a complex collection/structure along the heel pad, unchanged from a previous MRI in 2007, likely representing a large, chronic rheumatoid nodule; cortical irregularity along the plantar surface of the calcaneus also similar to the previous MRI, with a tubular appearing fluid signal intensity structure within the calcaneus also present previously; a new fluid signal component with surrounding soft tissue edema is seen, suggesting an active inflammatory process. Assessment/Plan Assessment/Plan Impression: This is a 67-year-old woman with a history of rheumatoid arthritis, maintained on Prednisone 5 mg twice daily by Dr. Amaya, followed by Podiatry (Dr. Vieyra) for a nonhealing ulcer on the plantar aspect of her left great toe for the past few months, admitted today with a one day history of severe left heel pain, found to be febrile with a leukocytosis and with an MRI of the left foot revealing findings, for the most part, unchanged from a previous MRI 10 years prior to admission except for the finding of a new fluid signal component with surrounding soft tissue edema, suggesting an active inflammatory process. I suspect that her fever and leukocytosis represent a flare up of her rheumatoid arthritis, given the acute onset of her inflammation, the nodule on the heel, and with the MRI mostly unchanged from her previous study 10 years prior to admission. She has no evidence of cellulitis and no evidence for any other focus of acute infection. Her nonhealing plantar ulcer on the left great toe is of some concern and may need to rule out underlying osteomyelitis; however do not feel this represents the source of her current fever or leukocytosis. Suggestion: 1. Obtain blood cultures 2 2. Obtain a urinalysis and urine culture 3. Obtain a chest x-ray 4. Rheumatology input 5. Would increase her dose of Prednisone empirically pending above 6. Would review her MRI of the left foot with Radiology with regard to her left great toe 7. Follow off antibiotics pending above Consult Acknowledgment - Thank you for your consult request.
[2017-12-23 22:21] VITALS: BP 129/67
--- NOTE | 2017-12-23 22:56 | Admission Certification ---
Admission Certification Certification Statement - As attending physician, I certify that at the time of - admission, based on clinical presentation, severity of - symptoms, need for further diagnostic testing and - therapeutic interventions, and risk of adverse outcomes - without in-hospital treatment, in my clinical assessment, - this patient requires an acute hospital stay for a minimum - of two nights or longer. I have also considered psychsocial - factors such as support system, advanced age, financial - issues, cognitive issues, and failed out-patient treatments, - past re-admission history, safety of patient, and lack of - compliance as applicable. Specific rationale supporting this admission is: The patient presents with severe left heel pain- ? osteomyelitis/infection vs. RA flare. MRI is not conclusive. The patient needs admission for cultures ? aspiration/biopsy (she is reluctant due to prior infection). ID and Podiatry/ Ortho consult. Rhem consult. Observe off of Abx and will icnrease Prednisone dose.
--- NOTE | 2017-12-23 23:03 | RADIOLOGY REPORT ---
EXAMINATION: XR PORTABLE CHEST CLINICAL INFORMATION: Fever, tachycardia, leukocytosis COMPARISON: CT 01/19/2016 TECHNIQUE: Portable frontal view of the chest was obtained. FINDINGS: The lungs are well expanded. Retrocardiac opacity noted. There may be a small left pleural effusion. The right lung is clear. No pneumothorax. No edema. The cardiomediastinal silhouette is prominent, similar to previous. IMPRESSION: Left basilar opacity which may represent a combination of small pleural effusion with associated atelectasis/pneumonia. Cardiomegaly.
[2017-12-23 23:13] LABS: PT 80.6 SEC (9.4-12.5)
--- NOTE | 2017-12-24 00:27 | Event Note ---
Event Note Event Note: Notified by RN of critical lab value INR 7.25 in patient taking Coumadin 1mg at home. Patient has not been given Coumadin inpatient. I went to see the patient. She was resting comfortably. She has subconjuctival hemorrhage left side inferior half of globe. She states she gets this occasionally and it resolves on its own. Of note she has also been febrile to 102. She states she feels well. She states she gets her INR checked once a month at the coumadin clinic. She denies history of INR this elevated and denies any supplements including garlic, echinacea, ginko biloba, or grape fruit. Discussed case with Dr. Pitts attending Public Relations Director. Will give one time dose Vit K 2.5mg and follow up INR in AM.
[2017-12-24 05:59] VITALS: BP 110/56
[2017-12-24 07:40] LABS: ABSOLUTE BASOPHIL COUNT 0 /CUMM (0.0-0.2); ABSOLUTE EOSINOPHIL COUNT 0 /CUMM (0.0-0.7); ABSOLUTE GRANULOCYTE CT 13.2 /CUMM (1.4-6.5); ABSOLUTE LYMPH COUNT 0.4 /CUMM (1.2-3.4); ABSOLUTE MONOCYTE COUNT 0.2 /CUMM (0.10-0.60); BASOPHIL % 0 % (0.0-2.0); EOSINOPHIL % 0 % (0-5); MEAN CORPUSCULAR HGB 29.7 PG (27.0-31.0); MEAN CORPUSCULAR HGB CONC 34.2 G/DL (33.0-37.0); MEAN CORPUSCULAR VOLUME 86.8 FL (81.0-99.0); MEAN PLATELET VOLUME 7.4 FL (7.4-10.4); PLATELET COUNT 235 /CUMM (130-400); RBC DISTRIBUTION WIDTH 17.2 % (11.5-14.5); RED BLOOD CELL CT 3.06 /CUMM (4.20-5.40); WHITE BLOOD CELL COUNT 13.7 /CUMM (4.8-10.8)
--- NOTE | 2017-12-24 07:51 | PN- Housestaff ---
Alix Howard 12/24/17 0750: Subjective Follow-up For: Left heel swelling and pain Subjective: Patient was seen and examined at bedside. She says the pain in her heel is much better. She wants to see her regular orthopaedician, and her Landscape Contractor, . She was reassured that they have been intimated and are expected to follow up soon. She denies fever, chilld, nausea, vomiting. Review of Systems Constitutional: Reports: see HPI. Objective Last 24 Hrs of Vital Signs/I&O Vital Signs Date Time Temp Pulse Resp B/P B/P Pulse O2 O2 Flow FiO2 Mean Ox Delivery Rate 12/24 1634 87 138/74 12/24 1630 87 138/74 12/24 1405 98.4 85 18 122/81 95 Room Air 12/24 1327 102 122/72 12/24 1327 102 122/72 12/24 0559 98.0 83 19 110/56 94 Room Air 12/23 2221 100.7 117 18 129/67 95 Room Air Intake & Output 12/24 1600 12/24 0800 12/24 0000 Intake Total 700 120 310 Output Total 500 400 Balance 200 120 -90 Intake, IV 0 10 Intake, Oral 700 120 300 Number 2 0 Bowel Movements Output, Urine 500 400 Patient 147 lb 156 lb Weight Weight Bed scale Bed scale Measurement Method Physical Exam General Appearance: Alert, Oriented X3, Cooperative, No Acute Distress Neck: Supple Cardiovascular: Regular Rate, Normal S1, Normal S2 Lungs: Clear to Auscultation, Normal Air Movement Abdomen: Normal Bowel Sounds, Soft, No Tenderness Extremities: left heel swelling, plantar ulcer on left great toe Assessment/Plan Assessment: 57-year-old female with past medical history of hypertension, CO, rheumatoid arthritis, 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 On examination, she has multiple deformities in her hands and feet her rheumatoid arthritis. There is significant swelling, tenderness and the left calcaneum. Vitals in the ED were T-max: 102, BP: 91/51, HR: 88 Her white blood count: 16.3, Hb: 10.9, and Na: 132, K: 3.4. Her creatinine was 0.9, calcium: 8.2, total protein: 5.9 with an albumin of 3.0. Her ESR is 105. Lactate was normal at 1 Foot X-ray IMPRESSION: 1. Difficult exam given osteopenia and flexion deformities in the forefoot. 2. As discussed above, there is subtle cortical irregularity at the plantar surface of the calcaneus with overlying soft tissue swelling, raising the suspicion of osteomyelitis. Close clinical correlation is requested. This can be further assessed with MRI scan. 2. Suspect postsurgical changes at the second, third and fourth metatarsophalangeal joints with resections of the metatarsal heads. 3. Hammertoe deformities of the toes is seen and there appears to be fusion across the first and the fifth metatarsophalangeal joint. 4. There is likely fusion across several of the lateral aspects of the intertarsal joints. Foot MRI Complex subcutaneous collection of the heel pad extending through a full-thickness defect/tear of the plantar fascia origin, and along the plantar aspect of the calcaneus where there is chronic appearing cortical irregularity. At the posterior aspect, there is the appearance of a sinus tract extending 1.5-2.0 cm into the calcaneus with surrounding bone marrow edema and enhancement. An MRI dated 08/02/2007 has been made available for comparison. The complex collection/structure along the heel pad was present in 2007 and appears similar, although now has a fluid signal component. Additionally, with the clinical history of rheumatoid arthritis as per Dr. Meyers, this most likely represents a large, chronic rheumatoid nodule. The cortical irregularity along the plantar surface of the calcaneus is similar with no new or active erosion. The tubular-appearing fluid signal intensity structures within the calcaneus are also present on the previous study, possibly prominent penetrating vessels or old sinus tracts. However, the new fluid signal component and surrounding soft tissue edema of the rheumatoid nodule suggest an active inflammatory process likely related to the patient's rheumatoid arthritis, which likely accounts for the marrow edema and enhancement that surrounds the more posterior of the sinus tracts. In the absence of a new soft tissue defect/wound, infection and osteomyelitis is less likely. Problems 1. Left heel swelling and pain (osteomyelitis vs RA flare) 2. Rheumatoid arthritis 3. Hypertension 4. Leukocytosis 4. Chronic steroid use PLAN: 1. Left heel swelling and pain -An MRI showed the presence of complex collection/structure along the pad with the fluid component. The collection/structure is chronic, the fluid combination surrounding soft tissue edema of a presumed rheumatoid nodule is a recent finding. -Leukocytosis of 13.7: Recent gastroenteritis versus steroid-induced demargination versus osteomyelitis versus rheumatoid flare -She does not have appear to have risk factors for osteomyelitis: no trauma, no diabetes, recent infection -He does have an ESR of 105, we will start her on high-dose corticosteroids, and reassess -We will aspirate the joint fluid for analysis and culture sensitivity in the AM tomorrow. -ID consult appreciated. Blood culture growig gram negative rods. She was started on Ciprofloxacin 500mg q12h, Flagyl 500mg TID. -Urine culture pending -Chest X-ray: Left basilar opacity which may represent a combination of small pleural effusion with associated atelectasis/pneumonia. -Rheumatology consult in the morning 2. Lekocytosis -Steroid induced vs rhematoid flare vs Infection -Pneumonia/Atelectasis on Chest X-ray. Blood cultures growing gram negative rods. -Started her on Cipro 500 BID and Flagyl 500 TID. -Trend CBC 3. Hypertension We will continue the patient on her home meds DVT prophylaxis Code status: Full code Problem List: 1. Heel lesion 2. Heel pain 3. Rheumatoid arthritis 4. Leukocytosis 5. Gram-negative bacteremia 6. Pleural effusion Pain Ratin Pain Location: left heel Pain Goal: Pain 4 or less Pain Plan: pathway Tomorrow's Labs & Rationales: cbc and bep SantiagoYasmine 12/24/17 1217: Attending MD Review Statement Attending Statement Attending MD Statement: examined this patient, discuss w/resident/PA/JAVA DEVELOPER ANALYST, agreed w/resident/PA/JAVA DEVELOPER ANALYST, discussed with family, reviewed EMR data (avail), discussed with nursing, discussed with case mgmt, reviewed images, amended to note Attending Assessment/Plan: #Calcaneal Pain- Concern regarding fever 102 and leukocytosis with elevated ESR. Her fever has occurred on chronic Prednisone therapy. Ortho and ID consult. #Possible UTI: Gram negative rods in urine: obtain CT abd/pelvis. f/u urine culture. abx as per ID #Rheumatoid arthirtis : c/w Prednisone. Rheumatology consult. [place] patient to Dr Amaya. #H/O Left 1st Toe Ulcer- chronic- followed by outside Podiatry. Has been stable as per patient. Plan: Podiatry and/or orthopedic input. #Hyperlipidemia- on Atorvastatin. Plan: Continue Atorvastatin. #HTN/Afib- BP as above. Plan: Continue Metoprolol, Furosemide, Losartan (?Valsartan), Spironolactone. #GERD- no symptoms. Plan: Continue Omeprazole. # Supratherapeutic INR: Hold coumadin for now. 1mg. Resume home meds. gi/dvt prophylaxis plan of care d/thu patient.
[2017-12-24 07:56] LABS: HEMATOCRIT 26.5 % (37-47)
[2017-12-24 08:24] LABS: GRANULOCYTE % 95.8 % (42.2-75.2)
--- NOTE | 2017-12-24 10:31 | PN- Infect Dx ---
Subjective Subjective: T-max 102, with temperatures down this morning on steroids. She feels somewhat improved with decreased pain in the left heel. She does note some urinary hesitancy but denies any dysuria or frequency. She has no nausea, vomiting or abdominal pain and has not moved her bowels for 4 days. Objective Last 24 Hrs of Vital Signs/I&O Vital Signs Date Time Temp Pulse Resp B/P B/P Pulse O2 O2 Flow FiO2 Mean Ox Delivery Rate 12/24 0559 98.0 83 19 110/56 94 Room Air 12/23 2221 100.7 117 18 129/67 95 Room Air 12/23 2127 100.9 12/23 1802 99.0 86 16 110/60 96 Room Air 12/23 1710 98.6 101 16 104/52 97 Room Air 12/23 1509 98.3 88 14 91/51 97 Room Air 12/23 1300 98.2 12/23 1110 102.0 Intake & Output 12/24 1600 12/24 0800 12/24 0000 Intake Total 120 310 Output Total 400 Balance 120 -90 Intake, IV 10 Intake, Oral 120 300 Number 0 Bowel Movements Output, Urine 400 Patient 147 lb 156 lb Weight Weight Bed scale Bed scale Measurement Method Physical Exam Other Physical Findings: She appears comfortable in no acute distress Lungs are clear Heart regular rhythm with no murmur Abdomen is soft, mildly tender on palpation over the right lower quadrant, with no guarding or rebound, positive bowel sounds Back bilateral CVA tenderness Extremities left heel medial nodule with minimal tenderness on palpation, with no surrounding erythema; left great toe plantar ulcer without any surrounding inflammation Results Last 24 Hours of Lab Results: Laboratory Tests 12/24 12/23 0617 2254 Chemistry Sodium (137 - 145 mmol/L) 136 L Potassium (3.5 - 5.1 mmol/L) 3.6 Chloride (98 - 107 mmol/L) 105 Carbon Dioxide (22 - 30 mmol/L) 19 L Anion Gap (5 - 16) 12 BUN (7 - 17 mg/dL) 17 Creatinine (0.5 - 1.0 mg/dL) 0.7 Estimated GFR (>60 ml/min) > 60 BUN/Creatinine Ratio (7 - 25 %) 24.3 Hematology CBC w Diff NO MAN DIFF REQ WBC (4.8 - 10.8 /CUMM) 13.7 H RBC (4.20 - 5.40 /CUMM) 3.06 L Hgb (12.0 - 16.0 G/DL) 9.1 L Hct (37 - 47 %) 26.5 L MCV (81.0 - 99.0 FL) 86.8 MCH (27.0 - 31.0 PG) 29.7 MCHC (33.0 - 37.0 G/DL) 34.2 RDW (11.5 - 14.5 %) 17.2 H Plt Count (130 - 400 /CUMM) 235 MPV (7.4 - 10.4 FL) 7.4 Gran % (42.2 - 75.2 %) 95.8 H Lymphocytes % (20.5 - 51.1 %) 2.8 L Monocytes % (1.7 - 9.3 %) 1.4 L Eosinophils % (0 - 5 %) 0 Basophils % (0.0 - 2.0 %) 0 Absolute Granulocytes (1.4 - 6.5 /CUMM) 13.2 H Absolute Lymphocytes (1.2 - 3.4 /CUMM) 0.4 L Absolute Monocytes (0.10 - 0.60 /CUMM) 0.2 Absolute Eosinophils (0.0 - 0.7 /CUMM) 0 Absolute Basophils (0.0 - 0.2 /CUMM) 0 Urines Urinalysis LIGHT H Urine Color (YEL,AMB,STR) YEL Urine Clarity (CLEAR) HAZY H Urine pH (5.0 - 8.0) 6.0 Ur Specific [place] (1.001 - 1.035) 1.015 Urine Protein (NEG,<30 MG/DL) NEG Urine Ketones (NEG) NEG Urine Nitrite (NEG) POS H Urine Bilirubin (NEG) NEG Urine Urobilinogen (0.1 - 1.0 EU/dl) 0.2 Ur Leukocyte Esterase (NEG) TRACE H Ur Microscopic SEDIMENT EXAMINED Urine RBC (0 - 5 /HPF) 1-3 Urine WBC (0 - 2 /HPF) 3-5 H Ur Epithelial Cells (NONE,FEW) RARE Urine Bacteria (NEG/NONE) MOD H Urine Mucus (FEW,NONE) FEW Urine Hemoglobin (NEG) MOD H Urine Glucose (N MG/DL) NEG 12/23 12/23 12/23 2146 1928 1658 Chemistry Lactic Acid (0.7 - 2.1 mmol/L) Cancelled 1.0 Coagulation PT (9.4 - 12.5 SEC) 80.6 *H INR (0.90 - 1.19) 7.25 *H Last 24 Hours of Fredi Results: Blood cultures December 23 1 bottle positive for gram-negative rods Urine culture December 24 pending Recent Imaging Studies: Chest x-ray December 23 reveals a possible left basilar opacity Assessment/Plan ID Impression: Clinically improved, with her temperatures normal so far today (on steroids) and with her white blood cell count decreased off antibiotics, but with one blood culture reported positive for gram-negative rods. Possible sources of infection include the abdomen, with lower abdominal tenderness, right greater than left, and the urinary tract, with the complaint of hesitancy, questionable flank tenderness and positive nitrites, though she has no dysuria or frequency. It is possible that her infection is related to her illness over the past week prior to admission, which was manifested by nausea, vomiting and joint pains. Her left heel pain is improved, likely secondary to the increased dose of steroids. She reports an allergy to Cephalexin, which caused facial swelling many years prior to admission (though she has tolerated penicillins) and will need to take this into account in choosing her antibiotics. Her chronic, nonhealing left great toe plantar ulcer raises concern for underlying osteomyelitis and her MRI should be reviewed for this. Suggestion: 1. Would pursue CT of the abdomen and pelvis with IV contrast 2. Follow-up her urine and blood cultures 3. Would continue steroids at the current dose pending above 4. Would review her MRI of the left foot with regard to her left great toe 5. Begin Ciprofloxacin 500 mg p.o. every 12 hours and Flagyl 500 mg p.o. every 8 hours pending above
[2017-12-24 13:27] VITALS: BP 122/72
[2017-12-24 14:05] VITALS: BP 122/81
--- NOTE | 2017-12-24 16:25 | CT SCAN REPORT ---
EXAMINATION: CT ABDOMEN AND PELVIS WITH CONTRAST CLINICAL INFORMATION: Diverticulitis. COMPARISON: CT scan of the abdomen and pelvis 09/04/2014. TECHNIQUE: Multidetector volumetric imaging was performed of the abdomen and pelvis following IV administration of 95 mL of Optiray 320 intravenous contrast. Sagittal and coronal reformatted images were obtained on the technologist's workstation. DLP: 283.55 mGy-cm FINDINGS: LUNG BASES: There is atelectasis at the lung bases bilaterally. LIVER, GALLBLADDER, AND BILIARY TREE: The liver is normal in size, shape and attenuation. The previously noted 8 mm area of low attenuation in the mid right lobe is less prominent on the current study. The 3 mm area more anteriorly in the right lobe is unchanged. The intrahepatic ducts are not dilated. The gallbladder has intermittent removed. PANCREAS: The pancreas is slightly atrophic. SPLEEN: The spleen is normal in size and density. There are no focal abnormalities. ADRENAL GLANDS: The adrenal glands nonenlarged. KIDNEYS AND URETERS: There are multiple cystic areas in the left kidney. The largest is at the upper pole and measures 1.6 cm in diameter. A small exophytic cyst on the left laterally is more prominent compared to prior imaging. The study redemonstrates the large exophytic cyst off the lower pole of the right kidney which is increased in size and measures 6.1 cm. There are no radiodense renal calculi. There is no hydronephrosis. There is no perinephric stranding. There is no hydroureter and there are no radiodense ureteric calculi. BLADDER: The urinary bladder is partially distended. GASTROINTESTINAL TRACT: There is a moderate hiatal hernia on the current study. The remainder of the stomach is unremarkable. The loops of small bowel are not dilated. The appendix is normal. There is mild stool within the large bowel. There is no significant diverticulosis and there is no evidence of active diverticulitis. ABDOMINAL WALL: No hernias are demonstrated. There are small surgical clips in the anterior upper pelvis. LYMPH NODES: There is no pelvic or abdominal lymphadenopathy. VASCULAR: There are atheromatous calcifications of the aorta. No aneurysm is demonstrated. PELVIC VISCERA: The uterus is not visualized and has likely been surgically removed. There are no masses or free fluid in the pelvis. MUSCULOSKELETAL: There is relative atrophy of the muscles around the lateral right hip joint. There are severe spondylitic changes in the thoracic spine and there is a levoscoliosis. There are multilevel facet arthropathic changes. There are sequelae of old fracture of the inferior pubic ramus on the left, which is a new finding compared to the prior study. There is irregularity of the left superior sacroiliac joint, new compared to the prior study and which may be sequelae of interval trauma. No acute fractures are demonstrated. IMPRESSION: 1. There is no evidence of diverticulitis. There is a moderate hiatal hernia. 2. There are bilateral renal cysts, larger on the right inferiorly when compared to the prior study. There is no hydronephrosis and there are no radiodense renal calculi. 3. There are sequelae of healed fracture of the left inferior pubic ramus and likely around the left sacroiliac joint, consistent with sequelae of interval trauma.
[2017-12-24 16:30] VITALS: BP 138/74
[2017-12-24 22:40] VITALS: BP 110/80
[2017-12-24 22:54] LABS: PT 37.6 SEC (9.4-12.5)
[2017-12-25 06:48] VITALS: BP 110/70
--- NOTE | 2017-12-25 07:31 | PN- Housestaff ---
Alix Howard 12/25/17 0731: Subjective Follow-up For: Rheumatoid Arthritis flare and bacteremia Subjective: Patient was seen and examined at bedside. She says her pain is a lot better today. However, she does complain that she has developed nausea and vomiting after antibiotics were started. Denies fever, chills, cough, shortness of breath , cough. Review of Systems Constitutional: Reports: see HPI. Objective Last 24 Hrs of Vital Signs/I&O Vital Signs Date Time Temp Pulse Resp B/P B/P Pulse O2 O2 Flow FiO2 Mean Ox Delivery Rate 12/25 2137 97.9 66 18 102/68 99 Room Air 12/25 1527 130/80 12/25 1400 98.6 77 18 112/84 97 Room Air 12/25 0948 108 130/80 12/25 0800 97 Room Air 12/25 0648 99.3 98 20 110/70 96 Room Air Intake & Output 12/26 0800 12/26 0000 12/25 1600 Intake Total 250 800 Output Total 301 502 Balance -51 298 Intake, Oral 250 800 Number 1 Bowel Movements Output, Stool 1 2 Output, Urine 300 500 Physical Exam General Appearance: Alert, Oriented X3, Cooperative, No Acute Distress Neck: Supple Cardiovascular: Regular Rate, Normal S1, Normal S2 Lungs: Clear to Auscultation Abdomen: Normal Bowel Sounds, Soft, No Tenderness Extremities: No Edema, Normal Pulses, She has swelling and tenderness in her left heel and an ulcer on the plantar aspect of his great toe Assessment/Plan Assessment: 57-year-old female with past medical history of hypertension, [place], rheumatoid arthritis, 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 On examination, she has multiple deformities in her hands and feet her rheumatoid arthritis. There is significant swelling, tenderness and the left calcaneum. Vitals in the ED were Afebrile BP: 91/51, HR: 88 Her white blood count: 18.3, Hb: 9.2, and Na: 128, K: 3.2. Her creatinine was 0.9, calcium: 8.2, total protein: 5.9 with an albumin of 3.0. Her ESR is 105. Lactate was normal at 1 Chest X-ray Left basilar opacity which may represent a combination of small pleural effusion with associated atelectasis/pneumonia. Cardiomegaly. Foot X-ray IMPRESSION: 1. Difficult exam given osteopenia and flexion deformities in the forefoot. 2. As discussed above, there is subtle cortical irregularity at the plantar surface of the calcaneus with overlying soft tissue swelling, raising the suspicion of osteomyelitis. Close clinical correlation is requested. This can be further assessed with MRI scan. 2. Suspect postsurgical changes at the second, third and fourth metatarsophalangeal joints with resections of the metatarsal heads. 3. Hammertoe deformities of the toes is seen and there appears to be fusion across the first and the fifth metatarsophalangeal joint. 4. There is likely fusion across several of the lateral aspects of the intertarsal joints. Foot MRI Complex subcutaneous collection of the heel pad extending through a full-thickness defect/tear of the plantar fascia origin, and along the plantar aspect of the calcaneus where there is chronic appearing cortical irregularity. At the posterior aspect, there is the appearance of a sinus tract extending 1.5-2.0 cm into the calcaneus with surrounding bone marrow edema and enhancement. An MRI dated 08/02/2007 has been made available for comparison. The complex collection/structure along the heel pad was present in 2007 and appears similar, although now has a fluid signal component. Additionally, with the clinical history of rheumatoid arthritis as per Dr. Meyers, this most likely represents a large, chronic rheumatoid nodule. The cortical irregularity along the plantar surface of the calcaneus is similar with no new or active erosion. The tubular-appearing fluid signal intensity structures within the calcaneus are also present on the previous study, possibly prominent penetrating vessels or old sinus tracts. However, the new fluid signal component and surrounding soft tissue edema of the rheumatoid nodule suggest an active inflammatory process likely related to the patient's rheumatoid arthritis, which likely accounts for the marrow edema and enhancement that surrounds the more posterior of the sinus tracts. In the absence of a new soft tissue defect/wound, infection and osteomyelitis is less likely. Problems 1. Left heel swelling and pain (osteomyelitis vs RA flare) 2. Rheumatoid arthritis 3. Hypertension 4. Leukocytosis 4. Chronic steroid use PLAN: 1. Left heel swelling and pain -An MRI showed the presence of complex collection/structure along the pad with the fluid component. The collection/structure is chronic, the fluid combination surrounding soft tissue edema of a presumed rheumatoid nodule is a recent finding. -Leukocytosis of 18.3: Recent gastroenteritis versus steroid-induced demargination versus osteomyelitis versus rheumatoid flare -She does not have appear to have risk factors for osteomyelitis: no trauma, no diabetes, recent infection -He does have an ESR of 105, we will start her on high-dose corticosteroids, and reassess -We will aspirate the joint fluid for analysis and culture sensitivity in the AM tomorrow. -ID consult appreciated. Blood culture growig gram negative rods. She was started on Ciprofloxacin 500mg q12h, Flagyl 500mg TID. -Urine culture pending -Chest X-ray: Left basilar opacity which may represent a combination of small pleural effusion with associated atelectasis/pneumonia. -Rheumatology consult in the morning 2. Lekocytosis -Steroid induced vs rhematoid flare vs Infection -Pneumonia/Atelectasis on Chest X-ray. Blood cultures growing gram negative rods. -ID consult appreciated. Will continue Ciprofloxacin 500mg BID. Would Stop Falgyl. -Trend CBC 3. Hypertension We will continue the patient on her home meds 4. Bacteremia The patient is growing gram negative rods in her blood and urine. Will follow up on sensitivities DVT prophylaxis Code status: Full code Problem List: 1. Pleural effusion 2. Gram-negative bacteremia 3. Heel lesion 4. Heel pain 5. Rheumatoid arthritis 6. Toe ulcer Pain Ratin Pain Location: left heel Pain Goal: Pain 4 or less Pain Plan: pathway Tomorrow's Labs & Rationales: cbc and bep Yasmine Henderson 12/25/17 1047: Attending MD Review Statement Attending Statement Attending MD Statement: examined this patient, discuss w/resident/PA/[employer] OFFICER, agreed w/resident/PA/[employer] OFFICER, discussed with family, reviewed EMR data (avail), discussed with nursing, discussed with case mgmt, reviewed images, amended to note Attending Assessment/Plan: #Calcaneal Pain- Concern regarding fever 102 and leukocytosis with elevated ESR. Her fever has occurred on chronic Prednisone therapy. Ortho pending and ID consulted. [facility]. She is known pateint to Dr Lopez. Refuses podiatry evalaution here Dr Cardona #Possible UTI: Gram negative rods in urine: CT abd/pelvis with no acute pathology. f/u urine culture. abx as per ID #Rheumatoid arthirtis : c/w Prednisone. Rheumatology call. [place] patient to Dr Amaya. #H/O Left 1st Toe Ulcer- chronic- followed by outside Podiatry. Has been stable as per patient. Plan: Podiatry as outpatient #Hyperlipidemia- on Atorvastatin. Plan: Continue Atorvastatin. #HTN/Afib- BP as above. Plan: Continue Metoprolol, Furosemide, Losartan (?Valsartan), Spironolactone. #GERD- no symptoms. Plan: Continue Omeprazole. # Supratherapeutic INR: Held coumadin for now. Monitor INR and resume dose 1mg. gi/dvt prophylaxis plan of care d/wed patient.
[2017-12-25 08:00] LABS: ABSOLUTE BASOPHIL COUNT 0 /CUMM (0.0-0.2); ABSOLUTE EOSINOPHIL COUNT 0 /CUMM (0.0-0.7); ABSOLUTE GRANULOCYTE CT 17.6 /CUMM (1.4-6.5); ABSOLUTE LYMPH COUNT 0.4 /CUMM (1.2-3.4); ABSOLUTE MONOCYTE COUNT 0.2 /CUMM (0.10-0.60); BASOPHIL % 0.1 % (0.0-2.0); EOSINOPHIL % 0 % (0-5); GRANULOCYTE % 96.4 % (42.2-75.2); HEMATOCRIT 26.8 % (37-47); MEAN CORPUSCULAR HGB 29.9 PG (27.0-31.0); MEAN CORPUSCULAR HGB CONC 34.2 G/DL (33.0-37.0); MEAN CORPUSCULAR VOLUME 87.3 FL (81.0-99.0); MEAN PLATELET VOLUME 7.5 FL (7.4-10.4); PLATELET COUNT 284 /CUMM (130-400); RBC DISTRIBUTION WIDTH 17.2 % (11.5-14.5); RED BLOOD CELL CT 3.07 /CUMM (4.20-5.40)
[2017-12-25 08:48] LABS: WHITE BLOOD CELL COUNT 18.3 /CUMM (4.8-10.8)
--- NOTE | 2017-12-25 13:01 | PN- Orthopedic ---
Surgical Brief Attending Note Brief Attending Note: Windy 7-year-old female with severe rheumatoid arthritis who I was asked to see for her left heel pain. She been having chronic heel pain which is worsened over the past week or so. There is no history of injury or trauma. She is treated by a supervisor pit and auxiliaries for her left great toe plantar ulcer. On physical exam the patient awake alert and oriented. Examination of left lower extremity reveals no erythema or open ulcers or wounds on the left hindfoot. As stated in the history there is a small scab on the left great toe with no signs of infection. It is no purulent drainage. She is tender to palpation about the calcaneus and the plantar fascial origin. The foot is grossly neurovascularly intact. MRI was reviewed of the left hindfoot which shows chronic inflammation and a rheumatoid nodule. There is no evidence of osteomyelitis this was compared to MRI from several years ago.( Assessment a 67-year-old female with chronic rheumatoid arthritis and left heel pain. Probable due to rheumatoid arthritis hindfoot arthritis as well as plantar fasciitis. No orthopedic intervention necessary at this time.
[2017-12-25 14:00] VITALS: BP 112/84
--- NOTE | 2017-12-25 14:06 | PN- Infect Dx ---
Subjective Subjective: Afebrile on steroids. She complains of nausea and diarrhea. She also notes urinary hesitancy, which has not improved. She notes minimal discomfort in the left heel. Objective Last 24 Hrs of Vital Signs/I&O Vital Signs Date Time Temp Pulse Resp B/P B/P Pulse O2 O2 Flow FiO2 Mean Ox Delivery Rate 12/25 0948 108 130/80 12/25 0800 97 Room Air 12/25 0648 99.3 98 20 110/70 96 Room Air 12/25 0000 Room Air 12/24 2240 98.0 76 18 110/80 97 Room Air 12/24 1634 87 138/74 12/24 1630 87 138/74 12/24 1405 98.4 85 18 122/81 95 Room Air Intake & Output 12/25 1600 12/25 0800 12/25 0000 Intake Total 730 490 Output Total 500 300 Balance 230 190 Intake, IV 10 10 Intake, Oral 720 480 Number 0 2 Bowel Movements Output, Urine 500 300 Physical Exam Other Physical Findings: She appears comfortable in no acute distress Lungs are clear Heart regular rhythm with no murmur Abdomen soft, mildly tender on palpation over the lower abdomen, right greater than left, with no guarding or rebound, positive bowel sounds Back right CVA tenderness Extremities left heel with minimal inflammation; left great toe plantar ulcer unchanged Results Last 24 Hours of Lab Results: Laboratory Tests 12/25 12/25 12/24 1340 0648 2140 Chemistry Sodium (137 - 145 mmol/L) 128 L Potassium (3.5 - 5.1 mmol/L) 3.2 L Chloride (98 - 107 mmol/L) 99 Carbon Dioxide (22 - 30 mmol/L) 18 L Anion Gap (5 - 16) 11 BUN (7 - 17 mg/dL) 22 H Creatinine (0.5 - 1.0 mg/dL) 0.8 Estimated GFR (>60 ml/min) > 60 BUN/Creatinine Ratio (7 - 25 %) 27.5 H Coagulation PT (9.4 - 12.5 SEC) Pending 37.6 H INR (0.90 - 1.19) Pending 3.41 H Hematology CBC w Diff NO MAN DIFF REQ WBC (4.8 - 10.8 /CUMM) 18.3 H RBC (4.20 - 5.40 /CUMM) 3.07 L Hgb (12.0 - 16.0 G/DL) 9.2 L Hct (37 - 47 %) 26.8 L MCV (81.0 - 99.0 FL) 87.3 MCH (27.0 - 31.0 PG) 29.9 MCHC (33.0 - 37.0 G/DL) 34.2 RDW (11.5 - 14.5 %) 17.2 H Plt Count (130 - 400 /CUMM) 284 MPV (7.4 - 10.4 FL) 7.5 Gran % (42.2 - 75.2 %) 96.4 H Lymphocytes % (20.5 - 51.1 %) 2.4 L Monocytes % (1.7 - 9.3 %) 1.1 L Eosinophils % (0 - 5 %) 0 Basophils % (0.0 - 2.0 %) 0.1 Absolute Granulocytes (1.4 - 6.5 /CUMM) 17.6 H Absolute Lymphocytes (1.2 - 3.4 /CUMM) 0.4 L Absolute Monocytes (0.10 - 0.60 /CUMM) 0.2 Absolute Eosinophils (0.0 - 0.7 /CUMM) 0 Absolute Basophils (0.0 - 0.2 /CUMM) 0 Last 24 Hours of Fredi Results: Blood cultures 2 December 23 positive for lactose fermenting gram-negative rods Urine culture December 24 greater than 100,000 colonies of gram-negative rods Recent Imaging Studies: CT of the abdomen and pelvis December 24 no acute process Assessment/Plan ID Impression: Stable, with her temperatures remaining normal (on steroids) on Ciprofloxacin and Flagyl, Day 2 of treatment for gram-negative bacteremia, most likely of urologic origin, with her urine and blood cultures both positive for gram- negative rods. She does have some urinary hesitancy and right flank tenderness, which would support this diagnosis. The CT of the abdomen and pelvis is negative for any intra-abdominal process; therefore the Flagyl can be discontinued. She does report diarrhea, possibly secondary to the antibiotics, and, if it persists , can rule out C. difficile. Her left heel pain is overall improved, likely secondary to the increased dose of steroids, but her dose of prednisone should be able to be decreased. Her chronic, nonhealing left great toe plantar ulcer raises concern for underlying osteomyelitis. Unfortunately her MRI did not include the toes; therefore this will require further evaluation, which can be done as an outpatient. Suggestion: 1. Stool for C. difficile if her diarrhea persists 2. Would decrease her dose of prednisone (would discuss with her crop grain or livestock farmer ) 3. Would pursue MRI of the left foot as an outpatient 4. Follow-up final cultures 5. Discontinue Flagyl 6. Continue Ciprofloxacin pending above Holly Carbajal MD will be covering over the weekend
[2017-12-25 21:37] VITALS: BP 102/68
[2017-12-26 06:51] VITALS: BP 90/60
[2017-12-26 08:36] LABS: PT 38.8 SEC (9.4-12.5)
[2017-12-26 08:37] LABS: ABSOLUTE BASOPHIL COUNT 0 /CUMM (0.0-0.2); ABSOLUTE EOSINOPHIL COUNT 0 /CUMM (0.0-0.7); ABSOLUTE GRANULOCYTE CT 11.7 /CUMM (1.4-6.5); ABSOLUTE LYMPH COUNT 0.8 /CUMM (1.2-3.4); ABSOLUTE MONOCYTE COUNT 0.7 /CUMM (0.10-0.60); BASOPHIL % 0.1 % (0.0-2.0); EOSINOPHIL % 0 % (0-5); HEMATOCRIT 26.2 % (37-47); MEAN CORPUSCULAR HGB 30.1 PG (27.0-31.0); MEAN CORPUSCULAR HGB CONC 34.3 G/DL (33.0-37.0); MEAN CORPUSCULAR VOLUME 87.7 FL (81.0-99.0); MEAN PLATELET VOLUME 7.8 FL (7.4-10.4); PLATELET COUNT 311 /CUMM (130-400); RBC DISTRIBUTION WIDTH 17.3 % (11.5-14.5); RED BLOOD CELL CT 2.98 /CUMM (4.20-5.40); WHITE BLOOD CELL COUNT 13.2 /CUMM (4.8-10.8)
[2017-12-26 08:56] VITALS: BP 100/60
--- NOTE | 2017-12-26 09:02 | PN- Housestaff ---
Deedee NAVARRO,Shilpa 12/26/17 0902: Subjective Follow-up For: Escherichia coli bacteremia Rheumatoid arthritis Subjective: Patient was resting comfortably in chair this morning. Patient reports that she has been feeling overall weak and continues to have pain in her left heel which she attributes to her rheumatoid arthritis. Patient states that she was feeling jittery with the prednisone. Patient worked with PT today and felt lightheaded after walking for a few minutes. Patient denies any dizziness. Denies chest pain, shortness breath, abdominal pain, fever, chills. Denies dysuria/ hematuria. Patient did feel nauseous and reports poor appetite. Patient has received Tigan. No acute events overnight. Review of Systems Constitutional: Reports: see HPI. Objective Last 24 Hrs of Vital Signs/I&O Vital Signs Date Time Temp Pulse Resp B/P B/P Pulse O2 O2 Flow FiO2 Mean Ox Delivery Rate 12/26 1423 97.8 80 16 118/70 96 Room Air 12/26 1236 82 104/50 12/26 0856 102 100/60 12/26 0800 Room Air 12/26 0651 98.4 76 18 90/60 96 / 2137 97.9 66 18 102/68 99 Room Air Intake & Output 12/26 1600 12/26 0800 12/26 0000 Intake Total 620 130 250 Output Total 350 200 301 Balance 270 -70 -51 Intake, IV 20 10 Intake, Oral 600 120 250 Number 1 1 Bowel Movements Output, Stool 1 Output, Urine 350 200 300 Physical Exam General Appearance: Alert, Cooperative, No Acute Distress Skin: No Rashes HEENT: Atraumatic, PERRLA, EOMI, Mucous Membr. moist/pink Cardiovascular: Regular Rate, Normal S1, Normal S2 Lungs: Clear to Auscultation, Normal Air Movement Abdomen: Normal Bowel Sounds, Soft, No Tenderness Neurological: Normal Speech, Sensation Intact, Cranial Nerves 3-12 NL Extremities: No Clubbing, No Cyanosis, Normal Pulses, No Tenderness/Swelling, bilateral lower extremity pedal edema, left heel with minimal erythema and tenderness; left toe ulcer, no drainage , warmth or erythema seen Vascular: Normal Pulses, Pulses Symmetrical Current Medications: Current Medications Sig/Narendra Start time Last Medication Dose Route Stop Time Status Admin Acetaminophen 650 MG Q6P PRN 12/23 2114 AC 12/26 PO 1049 Atorvastatin Calcium 40 MG QPM 12/24 2099 AC 12/25 PO 210 Ciprofloxacin 500 MG BID 12/24 2100 AC 12/26 PO 12/28 205 1043 Losartan Potassium 25 MG DAILY 12/24 1044 AC 12/25 PO 1527 Metoprolol Succinate 100 MG QAM 12/27 0900 AC PO Metoprolol Succinate 50 MG ONCE ONE 12/26 1100 DC 12/26 PO 12/26 1101 1236 Metoprolol Succinate 100 MG QAM 12/24 1044 DC 12/25 PO 0948 Omeprazole 20 MG DAILY AC 12/24 1045 AC 12/26 PO 0631 Prednisone 30 MG DAILY 12/26 1100 AC 12/26 PO 1236 Prednisone 40 MG DAILY 12/25 0900 DC 12/25 PO 0954 Tramadol HCl 50 MG Q6P PRN 12/23 2230 AC PO Trimethobenzamide HCl 0 .STK-MED ONE 12/26 0856 DC IM Trimethobenzamide HCl 200 MG TID PRN 12/24 2330 AC 12/26 IM 0856 Last 24 Hrs of Lab/Frdei Results Last 24 Hrs of Labs/Mics: Laboratory Tests 12/26/17 0705: Anion Gap 10, Estimated GFR > 60, BUN/Creatinine Ratio 26.7 H, PT 38.8 H, INR 3.51 H, CBC w Diff NO MAN DIFF REQ, RBC 2.98 L, MCV 87.7, MCH 30.1, MCHC 34.3, RDW 17.3 H, MPV 7.8, Gran % 88.5 H, Lymphocytes % 6.4 L, Monocytes % 5.0, Eosinophils % 0, Basophils % 0.1, Absolute Granulocytes 11.7 H, Absolute Lymphocytes 0.8 L, Absolute Monocytes 0.7 H, Absolute Eosinophils 0, Absolute Basophils 0 Assessment/Plan Assessment: Patient is a 67-year-old woman with past medical history of rheumatoid arthritis on prednisone therapy followed by Dr. mAaya, history of a nonhealing plantar surface ulcer of her left great toe following with Dr. Vieyra, history of MRSA osteomyelitis, CAD status post stents in 2010, hypertension, hyperlipidemia, atrial fibrillation on coumadin presenting with severe sudden onset left heel pain. Patient today appears to be improving. Patient remains afebrile on ciprofloxacin with leukocytosis which has decreased today, currently on prednisone. Patient's blood cultures and urine culture are growing pansensitive Escherichia coli. Patient's heel pain has improved with steroids however patient does not seem to be tolerating high-dose and her prednisone dose was decreased from 40 mg to 30 mg today. Patient is on the general medical floor, currently being treated for the followin. Escherichia coli bacteremia 2. UTI 3. Rheumatoid arthritis flare 4. Hypertension, hyperlipidemia, Atrial fibrillation on coumadin, GERD 5. Supratherapeutic INR Plan: Continue Cipro per ID, currently on day 3 Prednisone taper, decrease to 30 mg today Repeat blood cultures in a.m. per ID Continue home medications Monitor INR Problem List: 1. E coli bacteremia 2. Heel pain 3. Rheumatoid arthritis 4. Weakness Pain Ratin Pain Location: left heel Pain Goal: Pain 4 or less Pain Plan: tylenol tramadol Tomorrow's Labs & Rationales: cbc bep Jonathan NAVARRO,Amir 12/26/17 1525: Attending MD Review Statement Attending Statement Attending MD Statement: examined this patient, discuss w/resident/PA/CD TECHNICIAN, agreed w/resident/PA/CD TECHNICIAN, discussed with family, reviewed EMR data (avail), discussed with nursing Attending Assessment/Plan: Pt was seen and examined, chart reviewed. C-diff neg. INR supratherapeutic, cont to hold Coumadin. Cont to monitor. Rest of the plan as per resident's note
[2017-12-26 09:42] LABS: GRANULOCYTE % 88.5 % (42.2-75.2)
[2017-12-26 14:23] VITALS: BP 118/70
--- NOTE | 2017-12-26 14:28 | PN- Infect Dx ---
Subjective Subjective: Mild to moderate L heel discomfort. No fever. Diarrhea subsided. No nausea after stopping Flagyl. No abd pain. No ur.sx. Review of Systems Comments: 12 points reviewed as noted, otherwise negative. Objective Last 24 Hrs of Vital Signs/I&O Vital Signs Date Time Temp Pulse Resp B/P B/P Pulse O2 O2 Flow FiO2 Mean Ox Delivery Rate 12/26 1236 82 104/50 12/26 0856 102 100/60 12/26 0800 Room Air 12/26 0651 98.4 76 18 90/60 96 12/25 2137 97.9 66 18 102/68 99 Room Air 12/25 1527 130/80 Intake & Output 12/26 1600 12/26 0800 12/26 0000 Intake Total 620 130 250 Output Total 350 200 301 Balance 270 -70 -51 Intake, IV 20 10 Intake, Oral 600 120 250 Number 1 1 Bowel Movements Output, Stool 1 Output, Urine 350 200 300 Physical Exam Other Physical Findings: She appears comfortable in no acute distress HEENT: AT/NC Neck: No JVD Lungs are clear Heart regular rhythm with no murmur Abdomen soft, mildly tender on palpation over the lower abdomen, right greater than left, with no guarding or rebound, positive bowel sounds Extremities left heel with minimal inflammation; left great toe plantar ulcer/ dressing in place Results Last 24 Hours of Lab Results: Laboratory Tests 12/26 0705 Chemistry Sodium (137 - 145 mmol/L) 130 L Potassium (3.5 - 5.1 mmol/L) 3.4 L Chloride (98 - 107 mmol/L) 101 Carbon Dioxide (22 - 30 mmol/L) 19 L Anion Gap (5 - 16) 10 BUN (7 - 17 mg/dL) 24 H Creatinine (0.5 - 1.0 mg/dL) 0.9 Estimated GFR (>60 ml/min) > 60 BUN/Creatinine Ratio (7 - 25 %) 26.7 H Coagulation PT (9.4 - 12.5 SEC) 38.8 H INR (0.90 - 1.19) 3.51 H Hematology CBC w Diff NO MAN DIFF REQ WBC (4.8 - 10.8 /CUMM) 13.2 H RBC (4.20 - 5.40 /CUMM) 2.98 L Hgb (12.0 - 16.0 G/DL) 9.0 L Hct (37 - 47 %) 26.2 L MCV (81.0 - 99.0 FL) 87.7 MCH (27.0 - 31.0 PG) 30.1 MCHC (33.0 - 37.0 G/DL) 34.3 RDW (11.5 - 14.5 %) 17.3 H Plt Count (130 - 400 /CUMM) 311 MPV (7.4 - 10.4 FL) 7.8 Gran % (42.2 - 75.2 %) 88.5 H Lymphocytes % (20.5 - 51.1 %) 6.4 L Monocytes % (1.7 - 9.3 %) 5.0 Eosinophils % (0 - 5 %) 0 Basophils % (0.0 - 2.0 %) 0.1 Absolute Granulocytes (1.4 - 6.5 /CUMM) 11.7 H Absolute Lymphocytes (1.2 - 3.4 /CUMM) 0.8 L Absolute Monocytes (0.10 - 0.60 /CUMM) 0.7 H Absolute Eosinophils (0.0 - 0.7 /CUMM) 0 Absolute Basophils (0.0 - 0.2 /CUMM) 0 Last 24 Hours of Fredi Results: SPEC #: [id number] KATHRYN: 12/25/17 STATUS: RES RECD: 12/25/[address]: Anita NAVARRO,[facility] SOURCE: STOOL ENTR: 12/25/17-[address]: Santiago NAVARRO,Yasmine SPDESC: Isidoro NAVARRO,Tate Cuello DO ORDERED: STOOL CULTURE, C.DIFFICILE EIA COMMENT: CDIFF ADDED AT 1038 12/26/17 KD Procedure Result > STOOL CULTURE Preliminary 12/26/17 Mixed lou after 1 day > C. DIFFICILE TOXIN A & B EIA Final 12/26/171332 NEGATIVE FOR CLOSTRIDIUM DIFFICILE TOXINS A & B BY EIA > SHIGA TOXIN 1 AKA EHEC Final 12/26/17-0850 NEGATIVE; NOT DETECTED. > SHIGA TOXIN 2 AKA EHEC Final 12/26/17-0850 NEGATIVE; NOT DETECTED. SPEC #: [id number] KATHRYN: 12/23/17 STATUS: COMP RECD: 12/23/[address]: Maurisio NAVARRO,[facility] SOURCE: BLOOD ENTR: 12/23/17-[address]: Lanre Chaudhry MD [facility]: 1ST/VENOUS Josefa ,Tate Dobbs ORDERED: BLOOD CULTURE Procedure Result > BLOOD CULTURE REPORT Final 12/26/17 GRAM STAIN SUGGESTIVE OF: GRAM NEGATIVE RODS Called to/Readback by TATIANA by LAB.GEOK 12/24/17 1357 CULTURE: ESCHERICHIA COLI 1. ESCHERICHIA COLI RX AB ------ -- AMPICILLIN S CEFAZOLIN S AMOXICILLIN/CLAVULINIC ACID S AMPICILLIN/SULBACTAM S CIPROFLOXACIN S GENTAMICIN S TRIMETHOPRIM/SULFAMETHOXAZOLE S Recent Imaging Studies: CT A/P IMPRESSION: 1. There is no evidence of diverticulitis. There is a moderate hiatal hernia. 2. There are bilateral renal cysts, larger on the right inferiorly when compared to the prior study. There is no hydronephrosis and there are no radiodense renal calculi. 3. There are sequelae of healed fracture of the left inferior pubic ramus and likely around the left sacroiliac joint, consistent with sequelae of interval trauma. DICTATED BY: Lamin Armijo MD DATE/TIME DICTATED:12/24/171554 LOG SKIDDER:FAIZA DATE/TIME TRANSCRIBED:12/24/171554 Assessment/Plan ID Impression: 67-year-old woman with a history of rheumatoid arthritis, maintained on Prednisone 5 mg twice daily by Dr. Amaya, followed by Podiatry (Dr. Vieyra) for a nonhealing ulcer on the plantar aspect of her left great toe for the past few months, admitted with severe left heel pain, found to be febrile with a leukocytosis. E.coli (pansensitive) Bacteremia/UTI; stable, with her temperatures remaining normal (on steroids) on Ciprofloxacin Day# 3. leukocytosis; WBC trending down from previous day. She does report diarrhea, possibly secondary to the antibiotics. Her left heel pain is overall improved. Her chronic, nonhealing left great toe plantar ulcer concerning for underlying osteomyelitis. Unfortunately her MRI did not include the toes; therefore this will require further evaluation, which can be done as an outpatient. Suggestion: 1. F/U CBC, BMP. 2. Continue Cipro 3. Repeat Bc x1 in am. 4. if it persistent diarrhea, C. difficile toxin by PCR to be ordered (EIA test negative).
[2017-12-26 21:49] VITALS: BP 120/62
[2017-12-27 06:48] VITALS: BP 115/58
[2017-12-27 08:09] LABS: ABSOLUTE BASOPHIL COUNT 0 /CUMM (0.0-0.2); ABSOLUTE EOSINOPHIL COUNT 0 /CUMM (0.0-0.7); ABSOLUTE GRANULOCYTE CT 9.7 /CUMM (1.4-6.5); ABSOLUTE LYMPH COUNT 0.9 /CUMM (1.2-3.4); ABSOLUTE MONOCYTE COUNT 0.6 /CUMM (0.10-0.60); BASOPHIL % 0.1 % (0.0-2.0); EOSINOPHIL % 0.1 % (0-5); HEMATOCRIT 25.7 % (37-47); MEAN CORPUSCULAR HGB 30.1 PG (27.0-31.0); MEAN CORPUSCULAR HGB CONC 34.5 G/DL (33.0-37.0); MEAN CORPUSCULAR VOLUME 87.3 FL (81.0-99.0); MEAN PLATELET VOLUME 7.4 FL (7.4-10.4); PLATELET COUNT 351 /CUMM (130-400); RBC DISTRIBUTION WIDTH 17.3 % (11.5-14.5); RED BLOOD CELL CT 2.95 /CUMM (4.20-5.40); WHITE BLOOD CELL COUNT 11.2 /CUMM (4.8-10.8)
[2017-12-27 08:13] LABS: PT 35.8 SEC (9.4-12.5)
--- NOTE | 2017-12-27 08:26 | PN- Housestaff ---
See Addendum Subjective Follow-up For: Rheumatoid arthritis flare UTI Subjective: Patient was seen and examined at bedside. She reports an improvement in her diarrhea. She does complain that she has been feeling really weak and deconditioned since her admission. She is concerned she might need rehab as she is afraid she would not be able to climb up the steps in her house. She also says that she had to use one of her arms to lift the other one up this morning. She states she was "really unsteady" when she tried to get out of bed in the morning. She denies fever, chills, nausea, vomiting. Review of Systems Constitutional: Reports: see HPI. Objective Last 24 Hrs of Vital Signs/I&O Vital Signs Date Time Temp Pulse Resp B/P B/P Pulse O2 O2 Flow FiO2 Mean Ox Delivery Rate 12/27 1010 84 112/64 12/27 0800 Room Air 12/27 0648 97.7 68 16 115/58 99 Room Air 12/26 2149 97.2 75 16 120/62 98 Room Air 12/26 1423 97.8 80 16 118/70 96 Room Air 12/26 1236 82 104/50 Intake & Output 12/27 1600 12/27 0800 12/27 0000 Intake Total 360 300 Output Total 650 500 Balance -290 -200 Intake, Oral 360 300 Output, Urine 650 500 Physical Exam General Appearance: Alert, Oriented X3, Cooperative, No Acute Distress Skin: No Rashes Neck: Supple Cardiovascular: Regular Rate, Normal S1, Normal S2 Lungs: Clear to Auscultation Abdomen: Normal Bowel Sounds, Soft, No Tenderness Extremities: Swelling and redness in the heel improved Assessment/Plan Assessment: Patient is a 67-year-old woman with past medical history of rheumatoid arthritis on prednisone therapy followed by Dr. Amaya, history of a nonhealing plantar surface ulcer of her left great toe following with Dr. Vieyra, history of MRSA osteomyelitis, CAD status post stents in 2010, hypertension, hyperlipidemia, atrial fibrillation on coumadin presenting with severe sudden onset left heel pain. Patient today appears to be improving. Patient remains afebrile on ciprofloxacin with leukocytosis which has decreased today, currently on prednisone. Patient's blood cultures and urine culture are growing pansensitive Escherichia coli. Patient's heel pain has improved with steroids however patient does not seem to be tolerating high-dose and her prednisone dose was decreased from 40 mg to 30 mg today. Patient is on the general medical floor, currently being treated for the followin. Escherichia coli bacteremia 2. UTI 3. Rheumatoid arthritis flare 4. Hypertension, hyperlipidemia, Atrial fibrillation on coumadin, GERD 5. Supratherapeutic INR Plan: -Continue Cipro per ID, currently on day 3 -Prednisone taper, decrease to 30 mg today -Repeat blood cultures sent. Will follow up on her reports. -She had some pedal edema this morning. Re-start her on her diuretics. -Continue home medications -Monitor INR Problem List: 1. E coli bacteremia 2. Pleural effusion 3. Gram-negative bacteremia 4. Heel lesion 5. Heel pain 6. Rheumatoid arthritis 7. Toe ulcer Pain Ratin Pain Location: heel Pain Goal: Pain 4 or less Pain Plan: pathway Tomorrow's Labs & Rationales: cbc and bep
[2017-12-27 08:54] LABS: GRANULOCYTE % 86.5 % (42.2-75.2)
[2017-12-27 14:58] VITALS: BP 108/60
--- NOTE | 2017-12-27 16:57 | PN- Infect Dx ---
Subjective Subjective: No fever. No urinary sx. Resolved R side abd pain. Anxious. One loose BM this afternoon. She does complain that she has been feeling really weak and deconditioned since her admission. Review of Systems Comments: 12 points reviewed as noted, otherwise negative. Last colonoscopy 5 yrs ago; she reports intermittent bouts of diarrhea. Objective Last 24 Hrs of Vital Signs/I&O Vital Signs Date Time Temp Pulse Resp B/P B/P Pulse O2 O2 Flow FiO2 Mean Ox Delivery Rate 12/27 1458 97.9 81 20 108/60 99 Room Air 12/27 1010 84 112/64 12/27 0800 Room Air 12/27 0648 97.7 68 16 115/58 99 Room Air 12/26 2149 97.2 75 16 120/62 98 Room Air Intake & Output 12/27 1600 12/27 0800 12/27 0000 Intake Total 580 360 300 Output Total 350 650 500 Balance 230 -290 -200 Intake, IV 20 Intake, Oral 560 360 300 Number 1 Bowel Movements Output, Urine 350 650 500 Physical Exam Other Physical Findings: She appears comfortable in no acute distress HEENT: AT/NC, sclera anicteric, no thrush Neck: No JVD/SAMANTHA Lungs are clear; good inspiratory effort Heart S1 S2 present, no murmur Abdomen soft, no tenderness on palpation over the lower abdomen, positive bowel sounds Extremities left great toe plantar ulcer/dressing in place Skin: warm and dry Results Last 24 Hours of Lab Results: Laboratory Tests 12/27 0655 Chemistry Sodium (137 - 145 mmol/L) 135 L Potassium (3.5 - 5.1 mmol/L) 3.5 Chloride (98 - 107 mmol/L) 105 Carbon Dioxide (22 - 30 mmol/L) 24 Anion Gap (5 - 16) 6 BUN (7 - 17 mg/dL) 18 H Creatinine (0.5 - 1.0 mg/dL) 0.8 Estimated GFR (>60 ml/min) > 60 BUN/Creatinine Ratio (7 - 25 %) 22.5 Coagulation PT (9.4 - 12.5 SEC) 35.8 H INR (0.90 - 1.19) 3.25 H Hematology CBC w Diff NO MAN DIFF REQ WBC (4.8 - 10.8 /CUMM) 11.2 H RBC (4.20 - 5.40 /CUMM) 2.95 L Hgb (12.0 - 16.0 G/DL) 8.9 L Hct (37 - 47 %) 25.7 L MCV (81.0 - 99.0 FL) 87.3 MCH (27.0 - 31.0 PG) 30.1 MCHC (33.0 - 37.0 G/DL) 34.5 RDW (11.5 - 14.5 %) 17.3 H Plt Count (130 - 400 /CUMM) 351 MPV (7.4 - 10.4 FL) 7.4 Gran % (42.2 - 75.2 %) 86.5 H Lymphocytes % (20.5 - 51.1 %) 7.7 L Monocytes % (1.7 - 9.3 %) 5.6 Eosinophils % (0 - 5 %) 0.1 Basophils % (0.0 - 2.0 %) 0.1 Absolute Granulocytes (1.4 - 6.5 /CUMM) 9.7 H Absolute Lymphocytes (1.2 - 3.4 /CUMM) 0.9 L Absolute Monocytes (0.10 - 0.60 /CUMM) 0.6 Absolute Eosinophils (0.0 - 0.7 /CUMM) 0 Absolute Basophils (0.0 - 0.2 /CUMM) 0 Last 24 Hours of Fredi Results: SPEC #: [id number] KATHRYN: 12/24/17 STATUS: COMP RECD: 12/24/[address] [facility] [address]: Anais NAVARRO, [facility] SOURCE: URINE ROUT ENTR: 12/23/174234 OT DR: Lanre Chaudhry MD SPDESC: Tate Cabrera DO ORDERED: URINE CULTURE Procedure Result > URINE CULTURE Final 12/26/17115 Greater than 100,000 colonies per ml of: ESCHERICHIA COLI 1. ESCHERICHIA COLI RX AB ------ -- AMPICILLIN S CEFAZOLIN S AMOXICILLIN/CLAVULINIC ACID S AMPICILLIN/SULBACTAM S CIPROFLOXACIN S GENTAMICIN S NITROFURANTOIN S TRIMETHOPRIM/SULFAMETHOXAZOLE S Note: Infectious Diseases Society of [place] Guidelines state that asymptomatic bacteriuria is not associated with any increase in morbidity or mortality in most patients and therefore treatment is usually not indicated unless patients are less than five years old, or about to undergo urological procedures. Recent Imaging Studies: CT A/P IMPRESSION: 1. There is no evidence of diverticulitis. There is a moderate hiatal hernia. 2. There are bilateral renal cysts, larger on the right inferiorly when compared to the prior study. There is no hydronephrosis and there are no radiodense renal calculi. 3. There are sequelae of healed fracture of the left inferior pubic ramus and likely around the left sacroiliac joint, consistent with sequelae of interval trauma. DICTATED BY: Lamin Armijo MD DATE/TIME DICTATED:12/24/171554 TURF MANAGER:FAIZA DATE/TIME TRANSCRIBED:12/24/171554 Assessment/Plan ID Impression: 67-year-old woman (immunocompromised) with a history of rheumatoid arthritis, maintained on Prednisone 5 mg twice daily, nonhealing ulcer on the plantar aspect of her left great toe admitted on 12/23/17 with severe left heel pain, found to be febrile with a leukocytosis. E.coli (pansensitive) Bacteremia/UTI (w/o urinary symptoms; raising the question of possible infection withint the R renal cyst); stable, with her temperatures remaining normal (on steroids) on Ciprofloxacin Day# 4/10-14. Leukocytosis; WBC continues to trend down from previous day. She does report diarrhea, possibly secondary to the antibiotics. Her left heel pain is overall improved. Her chronic, nonhealing left great toe plantar ulcer concerning for underlying osteomyelitis, interval MRI to be repeated as an outpatient within 4 weeks from discharge. Suggestion: 1. F/U CBC, BMP. 2. Continue Cipro; EKG in am eval QT interval; please call Dr. Black if QT prolonged above 550 msec. 3. If persistent diarrhea obtain C. difficile toxin by PCR (of note EIA test negative). F/U GI as OP.
[2017-12-27 20:50] VITALS: BP 122/70
[2017-12-28 06:27] VITALS: BP 122/72
--- NOTE | 2017-12-28 07:53 | PN- Housestaff ---
Alix Howard 12/28/17 0753: Subjective Follow-up For: Rhematoid arthritis Subjective: Patient was seen and examined at bedside. She is distressed that she again had an episode of breakthrough diarrhea yesterday. She denies any abdominal cramping with the diarrhea. She has been ambulating on her own but thinks that she is groslsy deconditioned from her baseline. She reports improvement in the pain in her heel. Denies fever, chills, nausea, vomiting. Review of Systems Constitutional: Reports: see HPI. Objective Last 24 Hrs of Vital Signs/I&O Vital Signs Date Time Temp Pulse Resp B/P B/P Pulse O2 O2 Flow FiO2 Mean Ox Delivery Rate 12/28 1430 114/70 12/28 1315 Room Air 12/28 1311 Room Air 12/28 1244 Room Air 12/28 1244 130/80 12/28 0800 97 Room Air 12/28 0627 97.6 76 18 122/72 98 Room Air 12/27 2050 98.0 74 16 122/70 98 Room Air Intake & Output 12/28 1600 12/28 0800 12/28 0000 Intake Total 600 120 Output Total 1 500 401 Balance 599 -380 -401 Intake, Oral 600 120 Output, Stool 1 1 Output, Urine 500 400 Physical Exam General Appearance: Alert, Oriented X3, Cooperative, No Acute Distress Skin: No Rashes Neck: Supple Cardiovascular: Regular Rate, Normal S1, Normal S2 Lungs: Clear to Auscultation Abdomen: Normal Bowel Sounds, Soft, No Tenderness Extremities: No Edema, Normal Pulses Assessment/Plan Assessment: Patient today appears to be improving. Patient remains afebrile on ciprofloxacin with leukocytosis which has decreased today, currently on prednisone. Patient's blood cultures and urine culture are growing pansensitive Escherichia coli. Patient's heel pain has improved with steroids however patient does not seem to be tolerating high-dose and her prednisone dose was decreased from 40 mg to 30 mg. Patient is on the general medical floor, currently being treated for the followin. Escherichia coli bacteremia 2. UTI 3. Rheumatoid arthritis flare 4. Hypertension, hyperlipidemia, Atrial fibrillation on coumadin, GERD 5. Supratherapeutic INR PLAN: Left heel swelling and pain -Pain and swelling in the heel improving. Howvever, she complains of worseing pain in rest of her joints. -Leukocytosis of 11.8(improving) -Rhematology follow up outpatient -ID consult appreciated. * Discontinued Ciprofloxacin * Start Augmentin 500mg q8 h 2. Lekocytosis -Steroid induced vs rhematoid flare vs Infection -Pneumonia/Atelectasis on Chest X-ray. E.coli bactremia -ID consult appreciated. Yunier follow recommendation -Trend CBC 3. Hypertension We will continue the patient on her home meds 4. Diarrhea -Malabsorption vs Seondary to Vasculitis vs C.diff -C.diff negative -Stool culture unremarkable -Will order fecal elastase and lactoferrin to rule out malabsorption DVT prophylaxis Code status: Full code Problem List: 1. Leukocytosis 2. E coli bacteremia 3. Heel lesion 4. Heel pain 5. Rheumatoid arthritis 6. Toe ulcer Pain Ratin Pain Location: left heel Pain Goal: Pain 4 or less Pain Plan: pathway Tomorrow's Labs & Rationales: cbc, bep , fecal elastase, lactoferrin Chavez Hendersonrosendo 12/28/17 1157: Attending MD Review Statement Attending Statement Attending MD Statement: examined this patient, discuss w/resident/PA/SLEEP TECHNOLOGIST, agreed w/resident/PA/SLEEP TECHNOLOGIST, discussed with family, reviewed EMR data (avail), discussed with nursing, discussed with case mgmt, reviewed images, amended to note Attending Assessment/Plan: 67 o/f with pmh as above comes with fever, leukocytosis, bacteremia and urine culture positive for E coli sensitive to ciprofloxacin without evidence of pyelonephritis on imaging. Patient remained afebrile over past 48 hrs. She is receiving her prednisone for RA maintenance therapy. Consider repeat imaging as outpatient for ankle xray though MRI not suggestive of osteomyelitis. ( orthopedics consulted). She had few episodes of loose stools, though C diff is negative. Provide supportive care for diarrhea. She has general physical deconditioning and needs to work with PT. Anticipate discharge in next 24 hrs oN po Antibiotics. She needs to follow up with her PCP and rheumatology Dr Amaya as outpatient.
[2017-12-28 09:08] LABS: PT 31.6 SEC (9.4-12.5)
[2017-12-28 09:14] LABS: ABSOLUTE BASOPHIL COUNT 0 /CUMM (0.0-0.2); ABSOLUTE EOSINOPHIL COUNT 0 /CUMM (0.0-0.7); ABSOLUTE GRANULOCYTE CT 9.8 /CUMM (1.4-6.5); ABSOLUTE LYMPH COUNT 1.2 /CUMM (1.2-3.4); ABSOLUTE MONOCYTE COUNT 0.8 /CUMM (0.10-0.60); BASOPHIL % 0.1 % (0.0-2.0); EOSINOPHIL % 0.2 % (0-5); HEMATOCRIT 26.4 % (37-47); MEAN CORPUSCULAR HGB 29.5 PG (27.0-31.0); MEAN CORPUSCULAR HGB CONC 33.8 G/DL (33.0-37.0); MEAN CORPUSCULAR VOLUME 87.3 FL (81.0-99.0); MEAN PLATELET VOLUME 7.5 FL (7.4-10.4); PLATELET COUNT 395 /CUMM (130-400); RBC DISTRIBUTION WIDTH 17.8 % (11.5-14.5); RED BLOOD CELL CT 3.02 /CUMM (4.20-5.40); WHITE BLOOD CELL COUNT 11.8 /CUMM (4.8-10.8)
--- NOTE | 2017-12-28 12:38 | PN- Infect Dx ---
Subjective Subjective: Afebrile on steroids. She reports one loose bowel movement yesterday. Her nausea has improved but she does continue to report dysphagia with pills. She has mild discomfort in the left heel but was able to ambulate. She continues to report hesitancy on urination. Objective Last 24 Hrs of Vital Signs/I&O Vital Signs Date Time Temp Pulse Resp B/P B/P Pulse O2 O2 Flow FiO2 Mean Ox Delivery Rate 12/28 0800 97 Room Air 12/28 0627 97.6 76 18 122/72 98 Room Air 12/27 2050 98.0 74 16 122/70 98 Room Air 12/27 1458 97.9 81 20 108/60 99 Room Air Intake & Output 12/28 1600 12/28 0800 12/28 0000 Intake Total 120 Output Total 500 401 Balance -380 -401 Intake, Oral 120 Output, Stool 1 Output, Urine 500 400 Physical Exam Other Physical Findings: She appears comfortable in no acute distress Abdomen is soft, nontender with positive bowel sounds Back questionable right flank tenderness Extremities left heel with no erythema and with resolution of the nodule on the medial aspect, nontender to palpation Results Last 24 Hours of Lab Results: Laboratory Tests 12/28 0637 Chemistry Sodium (137 - 145 mmol/L) 136 L Potassium (3.5 - 5.1 mmol/L) 3.8 Chloride (98 - 107 mmol/L) 106 Carbon Dioxide (22 - 30 mmol/L) 25 Anion Gap (5 - 16) 5 BUN (7 - 17 mg/dL) 16 Creatinine (0.5 - 1.0 mg/dL) 0.8 Estimated GFR (>60 ml/min) > 60 BUN/Creatinine Ratio (7 - 25 %) 20.0 Coagulation PT (9.4 - 12.5 SEC) 31.6 H INR (0.90 - 1.19) 2.87 H Hematology CBC w Diff NO MAN DIFF REQ WBC (4.8 - 10.8 /CUMM) 11.8 H RBC (4.20 - 5.40 /CUMM) 3.02 L Hgb (12.0 - 16.0 G/DL) 8.9 L Hct (37 - 47 %) 26.4 L MCV (81.0 - 99.0 FL) 87.3 MCH (27.0 - 31.0 PG) 29.5 MCHC (33.0 - 37.0 G/DL) 33.8 RDW (11.5 - 14.5 %) 17.8 H Plt Count (130 - 400 /CUMM) 395 MPV (7.4 - 10.4 FL) 7.5 Gran % (42.2 - 75.2 %) 83.0 H Lymphocytes % (20.5 - 51.1 %) 10.3 L Monocytes % (1.7 - 9.3 %) 6.4 Eosinophils % (0 - 5 %) 0.2 Basophils % (0.0 - 2.0 %) 0.1 Absolute Granulocytes (1.4 - 6.5 /CUMM) 9.8 H Absolute Lymphocytes (1.2 - 3.4 /CUMM) 1.2 Absolute Monocytes (0.10 - 0.60 /CUMM) 0.8 H Absolute Eosinophils (0.0 - 0.7 /CUMM) 0 Absolute Basophils (0.0 - 0.2 /CUMM) 0 Last 24 Hours of Fredi Results: Blood cultures 2 December 23 positive for E. coli sensitive to all antibiotics tested Urine culture December 24 greater than 100,000 colonies of E. coli sensitive to all antibiotics tested Assessment/Plan ID Impression: Overall improved, with her temperatures normal (on steroids) and with her white blood cell count decreasing, on Ciprofloxacin, now Day 4 of treatment, for E. coli bacteremia, presumably of urological origin, with her urine culture also positive for E. coli. She continues to report some urinary symptoms but she also has other complaints, making it somewhat difficult to assess her. Given the E. coli sensitivities her antibiotics should be able to be adjusted. Her left heel inflammation appears to have improved on the increased dose of steroids, which should be able to be tapered. Her chronic, nonhealing left great toe plantar ulcer raises concern for underlying osteomyelitis. Her left heel MRI, unfortunately, did not include the toes; therefore further evaluation for this would require further imaging. The significance of her pill dysphagia is unclear but she may also warrant further evaluation for this. Suggestion: 1. Would taper her steroids (can discuss with her patient care provider, Dr. Amaya) 2. Would pursue an MRI of the left foot (can do as an outpatient) 3. Further evaluation of her pill dysphagia per Medicine 4. Discontinue Ciprofloxacin 5. Begin Amoxicillin 500 mg p.o. every 8 hours and continue for 10 more days
[2017-12-28 14:30] VITALS: BP 114/70
[2017-12-28 15:40] VITALS: BP 98/50
[2017-12-28 21:45] VITALS: BP 132/65
--- NOTE | 2017-12-28 21:50 | Cons- Gastroenterology ---
General Information and HPI Consulting Request Date of Consult: 12/28/17 Requested By: Yasmine Henderson MD Reason for Consult: 1. Rheumatoid arthritis 2. Diarrhea Source of Information: patient Exam Limitations: no limitations History of Present Illness: Ms. Muir is a 67 year old female with a past medical history of rheumatoid arthritis and long-standing bowel problems. She presented to the [place] ED with acute onset of heel pain. Incidentally, the patient states she got a "stomach virus" last week. She had severe diarrhea, having a bowel movement almost every 20 minutes last Thursday, which was yellowish and without mucus or blood. She had a fever of 102.5 and her temperature has been fluctuating between 99-102 throughout the last week. However, what brought her to the hospital was the heel pain. She is being seen by ID for the fever and the heel pain. The patient states the diarrhea has greatly improved, but she does not have an appetite. On admission she was found to have blood cultures as well as urine cultures that were positive for E. coli. We are consulted for evaluation of diarrhea. Patient is no longer having diarrhea however she does complain of long-standing problems with evacuation. She has had a myocardial infarction and has been told not to strain at stool and therefore is using MiraLAX at home and having either pasty or mushy stools. She has had concerns regarding wiping and soiling and wears a panty liner. She has a sensation of incomplete evacuation. She also has had episodes of extreme urgency for bowel movement resulting in incontinence. She has had 3 natural births and does not remember whether she had a rectovaginal tear or episiotomy. She has had some soiling as well as urgency. Allergies/Medications Allergies: Coded Allergies: latex (Severe, ITCHING 01/19/16) adhesive tape (PAPER TAPE ONLY 01/19/16) cephalexin (SWELLING OF THE FACE 01/19/16) clindamycin (UNKNOWN 01/19/16) strawberry (HIVES/RASH 01/19/16) carvedilol (Severe, SEVERE DIARRHEA 11/22/16) Home Med List: Acetaminophen (Pain Reliever) 500 MG CAPSULE 1 CAP PO PRN PAIN (Reported) Acetaminophen/Diphenhydramine (Tylenol Pm Ex-Strength Caplet) 1 EACH TABLET 0.5 TAB PO PRN SLEEP/PAIN (Reported) Amoxicillin 500 MG CAPSULE 4 CAP PO AD PRIOR TO DENTAL APPT (Reported) Aspirin (Ecotrin*) 81 MG TABLET.DR 1 TAB PO DAILY HEART/BLOOD (Reported) Atorvastatin Calcium (Lipitor) 40 MG TABLET 1 TAB PO QPM CHOLESTEROL ( Reported) Augmentin (Augmentin 500-125 Tablet) 500 MG-125 MG TABLET 500 MG PO BID INFECTION Calcium Carb/Vitamin D3/Vit K1 (Calcium + D Soft Chewable Tab) 500 MG CALCIUM-1, 000 UNIT-40 MCG TAB.CHEW 0.5 TAB PO QAM SUPPLEMENT (Reported) Clorazepate Dipotassium 7.5 MG TABLET 1 TAB PO PRN ANXIETY (Reported) Fructooligosaccharides/Polydex (Fiber-Stat 15 Gm/30 Ml Liquid) (Unknown Strength ) LIQUID (Unknown Dose) PO QAM SUPPLEMENT (Reported) Furosemide (Lasix) 20 MG TABLET 1 TAB PO 1330 DIUETIC (Reported) Furosemide 40 MG TABLET 1 TAB PO QAM DIURETIC (Reported) Hydrocolloid Dressing (Aquacel) 0.39" X 18" BANDAGE 1 LYNDSEY TOP DAILY ulcer Lactobacillus Acidophilus (Probiotic) (Unknown Strength) CAPSULE (Unknown Dose ) PO QAM PROBIOTIC (Reported) Losartan Potassium 25 MG TABLET 1 TAB PO DAILY FOR MY HEART (Reported) Metoprolol Succinate 100 MG TAB.ER.24H 1 TAB PO QAM HEART/BP (Reported) Mirabegron (Myrbetriq) 25 MG TAB.ER.24H 1 TAB PO QAM BLADDER (Reported) Multivitamin (Multiple Vitamins) 1 EACH TABLET 1 TAB PO DAILY SUPPLEMENT ( Reported) Nystatin 100,000 UNIT/GRAM OINT...G. 1 LYNDSEY TOP PRN SKIN (Reported) apply to affected area(s) Omeprazole 20 MG TABLET.DR 1 TAB PO DAILY GI (Reported) Prednisone 5 MG TABLET 1 TAB PO BID RA (Reported) Spironolactone (Aldactone) 25 MG TABLET 12.5 MG PO QAM DIURETIC (Reported) Valsartan (Diovan) 40 MG TABLET 1 TAB PO QAM BP (Reported) Warfarin Sodium 1 MG TABLET 1 TAB PO QPM BLOOD THINNER (Reported) Current Medications: Current Medications Sig/Narendra Start time Last Medication Dose Route Stop Time Status Admin Acetaminophen 650 MG Q6P PRN 12/23 2114 AC 12/26 PO 104 Amoxicillin 500 MG TID 12/28 1400 AC 12/28 PO 211 Atorvastatin Calcium 40 MG QPM 12/24 2100 AC 12/28 PO 211 Ciprofloxacin 500 MG BID 12/24 2100 DC 12/28 PO 12/289 0953 Furosemide 40 MG DAILY 12/28 0900 AC 12/28 PO 0957 Losartan Potassium 25 MG DAILY 12/24 1044 AC 12/28 PO 0958 Metoprolol Succinate 100 MG QAM 12/27 0900 DC 12/27 PO 1010 Metoprolol Tartrate 50 MG BID 12/28 1115 AC 12/28 PO 2116 Omeprazole 20 MG DAILY AC 12/24 1045 AC 12/28 PO 0509 Prednisone 30 MG DAILY 12/26 1100 AC 12/28 PO 0956 Spironolactone 12.5 MG DAILY 12/27 1224 AC 12/28 PO 0955 Tramadol HCl 50 MG Q6P PRN 12/23 2230 AC PO Trimethobenzamide HCl 200 MG TID PRN 12/24 2330 AC 12/26 IM 0856 Warfarin Sodium 1 MG COUMADIN 1700 ONE 12/28 1700 DC 12/28 PO 12/28 1701 1642 Past History Travel History Traveled to [place] past 21 day No Medical History Blood Transfusion Hx: No Neurological: TREMORS EENT: NONE Cardiovascular: hypertension, OR- BEGAN COUMADIN S/P OR JULY 07, 2010 [place] Respiratory: NONE Gastrointestinal: NONE Hepatic: NONE Renal: NONE Musculoskeletal: rheumatoid arthritis, BROKEN PELVIS Psychiatric: NONE Endocrine: NONE Blood Disorders: NONE Cancer(s): NONE PUBLIC ADDRESS ANNOUNCER/Reproductive: NONE Surgical History Surgical History: knee replacement Psychosocial History Services at Home: N/A Smoking Status: Former Smoker ETOH Use: denies use Illicit Drug Use: denies illicit drug use Exam & Diagnostic Data Vital Signs and I&O Vital Signs Date Time Temp Pulse Resp B/P B/P Pulse O2 O2 Flow FiO2 Mean Ox Delivery Rate 12/28 2145 98.2 88 18 132/65 97 Room Air 12/28 2116 88 132/65 12/28 1540 98.1 71 18 98/50 99 Room Air 12/28 1430 114/70 12/28 1315 Room Air 12/28 1311 Room Air 12/28 1244 Room Air 12/28 1244 130/80 12/28 0800 97 Room Air 12/28 0627 97.6 76 18 122/72 98 Room Air Intake & Output 12/28 1600 12/28 0400 12/27 0400 Intake Total 720 940 300 750 250 Output Total 310 910 7819 500 550 301 Balance 219 -401 -60 -200 200 -51 Intake, IV 20 30 Intake, Oral 720 920 300 720 250 Number 1 1 1 Bowel Movements Output, Stool 1 1 1 Output, Urine 216 690 4574 500 550 300 Patient 147 lb Weight Physical Exam General Appearance: no apparent distress Neck: normal inspection, supple Respiratory: chest non-tender, no respiratory distress, lungs clear Cardiovascular: regular rate/rhythm, Normal S1 and S2 without rub, murmur or gallop Gastrointestinal: normal bowel sounds, soft, non-tender Extremities: deformity due to RA Neurologic/Psych: alert, oriented x 3, normal mood/affect Cranial Nerves: Cranial nerves II-XII intact Results Pertinent Lab Results: Laboratory Tests 12/28 12/27 0637 0655 Chemistry Sodium (137 - 145 mmol/L) 136 L 135 L Potassium (3.5 - 5.1 mmol/L) 3.8 3.5 Chloride (98 - 107 mmol/L) 106 105 Carbon Dioxide (22 - 30 mmol/L) 25 24 Anion Gap (5 - 16) 5 6 BUN (7 - 17 mg/dL) 16 18 H Creatinine (0.5 - 1.0 mg/dL) 0.8 0.8 Estimated GFR (>60 ml/min) > 60 > 60 BUN/Creatinine Ratio (7 - 25 %) 20.0 22.5 Coagulation PT (9.4 - 12.5 SEC) 31.6 H 35.8 H INR (0.90 - 1.19) 2.87 H 3.25 H Hematology CBC w Diff NO MAN DIFF REQ NO MAN DIFF REQ WBC (4.8 - 10.8 /CUMM) 11.8 H 11.2 H RBC (4.20 - 5.40 /CUMM) 3.02 L 2.95 L Hgb (12.0 - 16.0 G/DL) 8.9 L 8.9 L Hct (37 - 47 %) 26.4 L 25.7 L MCV (81.0 - 99.0 FL) 87.3 87.3 MCH (27.0 - 31.0 PG) 29.5 30.1 MCHC (33.0 - 37.0 G/DL) 33.8 34.5 RDW (11.5 - 14.5 %) 17.8 H 17.3 H Plt Count (130 - 400 /CUMM) 395 351 MPV (7.4 - 10.4 FL) 7.5 7.4 Gran % (42.2 - 75.2 %) 83.0 H 86.5 H Lymphocytes % (20.5 - 51.1 %) 10.3 L 7.7 L Monocytes % (1.7 - 9.3 %) 6.4 5.6 Eosinophils % (0 - 5 %) 0.2 0.1 Basophils % (0.0 - 2.0 %) 0.1 0.1 Absolute Granulocytes (1.4 - 6.5 /CUMM) 9.8 H 9.7 H Absolute Lymphocytes (1.2 - 3.4 /CUMM) 1.2 0.9 L Absolute Monocytes (0.10 - 0.60 /CUMM) 0.8 H 0.6 Absolute Eosinophils (0.0 - 0.7 /CUMM) 0 0 Absolute Basophils (0.0 - 0.2 /CUMM) 0 0 08/18 0705 Chemistry Sodium (137 - 145 mmol/L) 130 L Potassium (3.5 - 5.1 mmol/L) 3.4 L Chloride (98 - 107 mmol/L) 101 Carbon Dioxide (22 - 30 mmol/L) 19 L Anion Gap (5 - 16) 10 BUN (7 - 17 mg/dL) 24 H Creatinine (0.5 - 1.0 mg/dL) 0.9 Estimated GFR (>60 ml/min) > 60 BUN/Creatinine Ratio (7 - 25 %) 26.7 H Coagulation PT (9.4 - 12.5 SEC) 38.8 H INR (0.90 - 1.19) 3.51 H Hematology CBC w Diff NO MAN DIFF REQ WBC (4.8 - 10.8 /CUMM) 13.2 H RBC (4.20 - 5.40 /CUMM) 2.98 L Hgb (12.0 - 16.0 G/DL) 9.0 L Hct (37 - 47 %) 26.2 L MCV (81.0 - 99.0 FL) 87.7 MCH (27.0 - 31.0 PG) 30.1 MCHC (33.0 - 37.0 G/DL) 34.3 RDW (11.5 - 14.5 %) 17.3 H Plt Count (130 - 400 /CUMM) 311 MPV (7.4 - 10.4 FL) 7.8 Gran % (42.2 - 75.2 %) 88.5 H Lymphocytes % (20.5 - 51.1 %) 6.4 L Monocytes % (1.7 - 9.3 %) 5.0 Eosinophils % (0 - 5 %) 0 Basophils % (0.0 - 2.0 %) 0.1 Absolute Granulocytes (1.4 - 6.5 /CUMM) 11.7 H Absolute Lymphocytes (1.2 - 3.4 /CUMM) 0.8 L Absolute Monocytes (0.10 - 0.60 /CUMM) 0.7 H Absolute Eosinophils (0.0 - 0.7 /CUMM) 0 Absolute Basophils (0.0 - 0.2 /CUMM) 0 Assessment/Plan Assessment/Recommendations: ASSESSMENT: 1. Rheumatoid Arthritis 2. E. Coli UTI/E. Coli Bacteremia 3. Alterations in Bowel Habits -- likely due to some degree to constipation with overflow. RECOMMENDATIONS: 1. Ms. Mittal had a colonoscopy with random colon biopsies to evaluate diarrhea in 2015. These were negative for collagenous colitis or any inflammatory changes. She did have a small adenomatous polyp, however that would place her in line for repeat colonoscopy in 2020. 2. Her problems with bowel habit are related to problems of elimination and consistency which can be evaluated as an outpatient. 3. I do not believe that further inpatient evaluation is needed at this time. I have given her my contact information and even when transferred to a rehab facility she can follow-up with me as an outpatient. 4. GI will sign off. Consult Acknowledgment - Thank you for your consult request.
[2017-12-29 07:25] VITALS: BP 119/63
[2017-12-29] MEDS ORDERED: AUGMENTIN 500-1 EACH PO (07:28)
--- NOTE | 2017-12-29 07:31 | Patient Discharge Instructions ---
Discharge Instructions General Discharge Information You were seen/treated for: 1.Rheumatoid arthritis flare 2. Urinary Tract Infection Special Instructions: 1. Please see your PCP within a week of your discharge. 2. Please follow up with your Amusement Machine Mechanic for your Rhematoid arthritis 3. Please follow up with a nougat cutter machine for your diarrhea and related symptoms. Acute Coronary Syndrome Inclusion Criteria At DC or during hospital stay patient has or had the following: ACS DIAGNOSIS No Discharge Core Measures Meds if any: Prescribed or Continued at Discharge Meds if any: NOT Prescribed or Continued at Discharge Congestive Heart Failure Inclusion Criteria At DC or during hospital stay patient has or had the following: CHF DIAGNOSIS No Discharge Core Measures Meds if any: Prescribed or Continued at Discharge Meds if any: NOT Prescribed or Continued at Discharge Cerebrovascular accident Inclusion Criteria At DC or during hospital stay patient has or had the following: CVA/TIA Diagnosis No Discharge Core Measures Meds if any: Prescribed or Continued at Discharge Meds if any: NOT Prescribed or Continued at Discharge Venous thromboembolism Inclusion Criteria VTE Diagnosis No VTE Type NONE VTE Confirmed by (Test) NONE Discharge Core Measures - Per Current guidelines, there needs to be overlap - treatment for the first 5 days of Warfarin therapy. - If discharged on Warfarin prior to 5 days of - overlap therapy, the patient will need to be - assessed for post discharge needs including - *Post discharge parental anticoagulation - *Warfarin and/or parental anticoagulation education - *Follow up date to check INR post discharge At least 5 days overlap therapy as Inpatient No Meds if any: Prescribed or Continued at Discharge Note: Overlap Therapy is Warfarin and Anticoagulant Meds if any: NOT Prescribed or Continued at Discharge
--- NOTE | 2017-12-29 07:32 | PN- Housestaff ---
Alix Howard 12/29/17 0731: Subjective Follow-up For: Rheumatoid arthritis flare up UTI Subjective: Patient was seen and examined at bedside. She reports an isolated episode of diarrhea last night. She says she is able to walk short distances. However, she needs assistance to get up from the chair. She does have stairs at home and is not able to go up or down without assistance at this time. Denies fever, chills, nausea, vomiting, headache. Review of Systems Constitutional: Reports: see HPI. Objective Last 24 Hrs of Vital Signs/I&O Vital Signs Date Time Temp Pulse Resp B/P B/P Pulse O2 O2 Flow FiO2 Mean Ox Delivery Rate 12/29 1527 97.8 94 18 111/62 97 Room Air 12/29 1003 98.3 80 18 110/60 12/29 0914 80 110/60 12/29 0914 80 110/60 12/29 0725 98.3 83 18 119/63 98 12/28 2145 98.2 88 18 132/65 97 Room Air 12/28 2116 88 132/65 12/28 1540 98.1 71 18 98/50 99 Room Air Intake & Output 12/29 1600 12/29 0800 12/29 0000 Intake Total 443 358 6331 Output Total 650 1500 1200 Balance 150 -1100 -200 Intake, Oral 736 843 3342 Number 1 2 2 Bowel Movements Output, Urine 650 1500 1200 Physical Exam General Appearance: Alert, Oriented X3, Cooperative, No Acute Distress Neck: Supple Cardiovascular: Regular Rate, Normal S1, Normal S2 Lungs: Clear to Auscultation, Normal Air Movement Abdomen: Normal Bowel Sounds, Soft, No Tenderness Assessment/Plan Assessment: Patient today appears to be improving. Patient remains afebrile on ciprofloxacin with leukocytosis which has decreased today, currently on prednisone. Patient's blood cultures and urine culture are growing pansensitive Escherichia coli. Patient's heel pain has improved with steroids however patient does not seem to be tolerating high-dose and her prednisone dose was decreased from 40 mg to 30 mg. Patient is on the general medical floor, currently being treated for the followin. Escherichia coli bacteremia 2. UTI 3. Rheumatoid arthritis flare 4. Hypertension, hyperlipidemia, Atrial fibrillation on coumadin, GERD 5. Supratherapeutic INR PLAN: Left heel swelling and pain -Pain and swelling in the heel improving. Howvever, she complains of worseing pain in rest of her joints. -Leukocytosis of 11.8(improving) -Rhematology follow up outpatient -ID consult appreciated. * Discontinued Ciprofloxacin * Continue Augmentin 500mg q8 h for 9 days -I talked to on the phone. He recommended a taper for her steroids: 20mg tomorrow, 10mg for 3 days thereafter followed by a return to the baseline 5mg BID dose. 2. Lekocytosis -Steroid induced vs rhematoid flare vs Infection -Pneumonia/Atelectasis on Chest X-ray. E.coli bactremia -ID consult appreciated. Yunier follow recommendation -Trend CBC 3. Hypertension We will continue the patient on her home meds 4. Diarrhea -Malabsorption vs Seondary to Vasculitis vs C.diff -C.diff negative -Stool culture unremarkable -Will order fecal elastase and lactoferrin to rule out malabsorption The patient is due for discharge to an [facility], pending approval. DVT prophylaxis Code status: Full code Problem List: 1. E coli bacteremia 2. Pleural effusion 3. Gram-negative bacteremia 4. Heel lesion 5. Rheumatoid arthritis 6. Toe ulcer Pain Ratin Pain Location: heel Pain Goal: Pain 4 or less Pain Plan: pathway Tomorrow's Labs & Rationales: cbc and bep SantiagoChavez [email or web address] 12/29/17 1101: Attending MD Review Statement Attending Statement Attending MD Statement: examined this patient, discuss w/resident/PA/TAFE TEACHER, agreed w/resident/PA/TAFE TEACHER, discussed with family, reviewed EMR data (avail), discussed with nursing, discussed with case mgmt, reviewed images, amended to note Attending Assessment/Plan: Patient with no new complaints. Patient is medically stable for discharge to rehab facility on PO abx. Needs to follow up with her behavioral health worker after discharge and consider repeat imaging as outpatient of left ankle. Anticipate discharge soon. Awaiting insurance approval.
[2017-12-29 08:36] LABS: ABSOLUTE BASOPHIL COUNT 0.1 /CUMM (0.0-0.2); ABSOLUTE EOSINOPHIL COUNT 0 /CUMM (0.0-0.7); ABSOLUTE GRANULOCYTE CT 9.1 /CUMM (1.4-6.5); ABSOLUTE LYMPH COUNT 1.3 /CUMM (1.2-3.4); ABSOLUTE MONOCYTE COUNT 0.8 /CUMM (0.10-0.60); BASOPHIL % 0.5 % (0.0-2.0); EOSINOPHIL % 0.4 % (0-5); GRANULOCYTE % 80.3 % (42.2-75.2); HEMATOCRIT 27.5 % (37-47); MEAN CORPUSCULAR HGB 29.6 PG (27.0-31.0); MEAN CORPUSCULAR HGB CONC 33.6 G/DL (33.0-37.0); MEAN CORPUSCULAR VOLUME 87.8 FL (81.0-99.0); MEAN PLATELET VOLUME 7.1 FL (7.4-10.4); PLATELET COUNT 418 /CUMM (130-400); RBC DISTRIBUTION WIDTH 17.8 % (11.5-14.5); RED BLOOD CELL CT 3.14 /CUMM (4.20-5.40); WHITE BLOOD CELL COUNT 11.4 /CUMM (4.8-10.8)
[2017-12-29 08:39] LABS: PT 29.5 SEC (9.4-12.5)
--- NOTE | 2017-12-29 09:23 | Discharge Summary ---
Visit Information Visit Dates Admission Date: 12/23/17 Discharge Date: 12/29/17 Hospital Course Course Attending Physician: Yasmine Henderson MD Primary Care Physician: Tate Rivero DO Hospital Course: 67 yo female with h/o HTN, CAD (s/p ND/stents), s/p TKR, h/o RA (on chronic Prednisone therapy), h/o non-healing left 1st toe ulcer (followed by podiatry) who presented with sudden onset of severe left heel pain. She had 1 week h/o fevers and diarrhea (felt to be viral) prior to this. In the ED had elevated WBC of 16 K and spiked a temperature of 102 degrees (on Prednisone therapy). MRI of foot done shows complex collection along heel pad- similar to 2008 study. There was also evidence of soft tissue edema. Physical Exam: VS: T 102.0-99.8, P 116-88, R 20, BP 102/52-91/51, PO 97% RA HEENT: eyes- PERRLA, EOMI emily- moist mucosa Neck: no adenopathy, JVD, bruits Chest: clear Cor: RR nl S1, S2 w/o murm Abd: BS+, soft, NT, - HSM Ext: no LE edema, + mild tender left calcaneal area (medial) - mild erythema w/o warmth; + joint deformities hands (RA) Neuro: alert & oriented x 3, non-focal exam Pt was admitted to general medicine and the following issues below were addressed: #Calcaneal Pain- MRI results showed chronic inflammation and a rheumatoid nodule. There was no evidence of osteomyelitis this was compared to MRI from several years agoas above. The patient has known RA. Her calcaneal pain was thought to be more likely for a Rheumatoid falre up. Her Pain was adequately treated with Tramadol in addition to prednisone burst. #Rheumatoid Arthritis flare up Presence of Rheumatoid nodule on foot MRI with accompanied pain in a RA patient was more consitent with a flare up. Her Prednisone dose was increased from 5mg bid to 40 mg. She responded well and reported significant pain relief. She was discharged on a rapid Prednisone taper down to her mainatenance 5mg po bid baseline. She was instructed to follow up with her Air Cargo Ground Operations Supervisor. There was concern initially for possible osetomyelitis given the presenting leukocytosis and fever, however it was beilieved that her fever was more from the RA flare up while her leukocytosis was from prednisone use. ID was consulted and reccomendation was to pursue an outpatient MRI of the left (even though the one obtained at [place] was not suscipious of osteomyelitis, ID felt that a reapeat more optimal MRI can be done), #H/O Left 1st Toe Ulcer- chronic- followed by outside Podiatry. Non deteriorating during hospital stay. ID was on board and it was dtermined the ulcer was not infectious. #UTI Culture grew gram negative lomas sensitive E.coli which was treated with Cipro intiially and then switched to Amoxicillin after sensitivity results. She remained afebrile with no urinary complaints during hospital stay. She was discharged with Amoxicillin 8 day therapy. #Gram negative Bacteremia Grew gram negative E.coli X2. Source was Urinary given the positive urine culture growing E.coli. This was managed by the amoxiccillin for a total of 10 days. #Discharge disposition Evaluated by PT and given she has 8 staurs at home, she was not able to ivan her goals. She was reccomended for STR. Issues to follow up on : #Repeat out patient Left foot MRI to optimmaly assess for Osteo vs RA. #Pt is to taper her prednisone and get back to her 5mg po bid (as reccomended by Rheum) #Pt is to f/u with her Podiatry regarding her chronic left toe ulcer. Allergies: Coded Allergies: latex (Severe, ITCHING 01/19/16) adhesive tape (PAPER TAPE ONLY 01/19/16) cephalexin (SWELLING OF THE FACE 01/19/16) clindamycin (UNKNOWN 01/19/16) strawberry (HIVES/RASH 01/19/16) carvedilol (Severe, SEVERE DIARRHEA 11/22/16) Disposition Summary Disposition Principal Diagnosis: Rheumatoid flare up Additional Diagnosis: UTI Bacteremia Discharge Disposition: SNF Discharge Instructions General Discharge Information Code Status: Full Code Patient's Diet: regular Patient's Activity: as tolerated Follow-Up Instructions/Appts: #Repeat out patient Left foot MRI to optimmaly assess for Osteo vs RA. #Pt is to taper her prednisone and get back to her 5mg po bid (as reccomended by Rheum) #Pt is to f/u with her Podiatry regarding her chronic left toe ulcer. Medications at Discharge Discharge Medications: Stop taking the following medications: Furosemide (Lasix) 20 MG TABLET ORAL 1330 Valsartan (Diovan) 40 MG TABLET ORAL Every Morning Continue taking these medications: Metoprolol Succinate (Metoprolol Succinate) 100 MG TAB.ER.24H 1 Tablet ORAL Every Morning Comments: Last Taken: 12/31/17 Time: 10:00 AM Spironolactone (Aldactone) 25 MG TABLET 12.5 Milligram ORAL Every Morning Comments: Last Taken: 12/31/17 Time: 10:00 AM Atorvastatin Calcium (Lipitor) 40 MG TABLET 1 Tablet ORAL Every night Comments: Last Taken: 12/30/17 Time: 8:30 PM Prednisone (Prednisone) 5 MG TABLET 1 Tablet ORAL TWICE DAILY Comments: TO START WHEN TAPER IS FINISHED NOT GIVEN IN HOSPTIAL Amoxicillin (Amoxicillin) 500 MG CAPSULE 4 Capsule ORAL As Directed Comments: NOT GIVEN IN HOSPTIAL Multivitamin (Multiple Vitamins) 1 EACH TABLET 1 Tablet ORAL DAILY Comments: NOT GIVEN IN HOSPITAL Calcium Carb/Vitamin D3/Vit K1 (Calcium + D Soft Chewable Tab) 500 MG CALCIUM-1, 000 UNIT-40 MCG TAB.CHEW 0.5 Tablet ORAL Every Morning Comments: NOT GIVEN IN HOSPITAL Acetaminophen/Diphenhydramine (Tylenol Pm Ex-Strength Caplet) 1 EACH TABLET 0.5 Tablet ORAL as needed for SLEEP/PAIN Comments: NOT GIVEN IN HOSPITAL Acetaminophen (Pain Reliever) 500 MG CAPSULE 1 Capsule ORAL as needed for PAIN Comments: Last Taken: 12/30/17 Time: 6:00 AM Aspirin (Ecotrin*) 81 MG TABLET. 1 Tablet ORAL DAILY Comments: NOT GIVEN IN HOSPITAL Furosemide (Furosemide) 40 MG TABLET 1 Tablet ORAL Every Morning Comments: Last Taken: 12/31/17 Time: 10:00 AM Omeprazole (Omeprazole) 20 MG TABLET.DR 1 Tablet ORAL DAILY Comments: Last Taken: 12/31/17 Time: 6:30 AM Clorazepate Dipotassium (Clorazepate Dipotassium) 7.5 MG TABLET 1 Tablet ORAL as needed for ANXIETY Comments: NOT GIVEN IN HOSPITAL Lactobacillus Acidophilus (Probiotic) (Unknown Strength) CAPSULE 1 ORAL Every Morning Comments: NOT GIVEN IN HOSPITAL Warfarin Sodium (Warfarin Sodium) 1 MG TABLET 1 Tablet ORAL Every night Comments: Last Taken: 12/30/17 Time: 5:30 PM Mirabegron (Myrbetriq) 25 MG TAB.ER.24H 1 Tablet ORAL Every Morning Comments: NOT GIVEN IN HOSPTIAL Fructooligosaccharides/Polydex (Fiber-Stat 15 Gm/30 Ml Liquid) (Unknown Strength ) LIQUID 30 Milliliters ORAL Every Morning Comments: NOT GIVEN IN HOSPITAL Nystatin (Nystatin) 100,000 UNIT/GRAM OINT...G. 1 Application On the skin THREE TIMES A DAY NEEDED as needed for SKIN Qty = 30 Instructions: apply to affected area(s) Comments: NOT GIVEN IN HOSPITAL Hydrocolloid Dressing (Aquacel) 0.39" X 18" BANDAGE 1 Application On the skin DAILY Qty = 5 Comments: NOT GIVEN IN HOSPITAL Losartan Potassium (Losartan Potassium) 25 MG TABLET 1 Tablet ORAL DAILY Qty = 90 Comments: Last Taken: 12/31/17 Time: 10:00 AM Start taking the following new medications: Prednisone (Prednisone) 5 MG TABLET 5 Milligram ORAL TWICE DAILY Qty = 30 Refills = 12 Instructions: Please take 2 tablets in the morning and 2 tablets in the evening from 12/31-01/02, then resume back to your regular 1 po bid (5mg po bid). Comments: Last Taken: 12/31/17 Time: 10:00 AM Amoxicillin (Amoxicillin) 500 MG CAPSULE 500 Milligram ORAL THREE TIMES DAILY Qty = 16 No Refills Comments: Last Taken: 12/31/17 Time: 3:00 PM Loperamide HCl (Loperamide) 2 MG TABLET 2 Milligram ORAL EVERY 6 HOURS NEEDED as needed for DIARRHEA Qty = 30 No Refills Comments: Last Taken: 12/31/17 Time: 10:00 AM Copies To: Tate Rivero DO MD Review Statement Documenting Attending: Santiago NAVARRO,Yasmine
[2017-12-29 10:03] VITALS: BP 110/60
[2017-12-29] MEDS ORDERED: PREDNISONE5 M1 PO (13:04)
[2017-12-29] MEDS ORDERED: AMOXICILLIN500 M2 PO (13:04)
--- NOTE | 2017-12-29 13:05 | Patient Discharge Instructions ---
Discharge Instructions General Discharge Information You were seen/treated for: 1.Rheumatoid arthritis flare 2. Urinary Tract Infection Special Instructions: 1. Please see your PCP within a week of your discharge. 2. Please follow up with your Research Methods Instructor for your Rhematoid arthritis 3. Please follow up with a dimethylaniline sulfator operator for your diarrhea and related symptoms. Acute Coronary Syndrome Inclusion Criteria At DC or during hospital stay patient has or had the following: ACS DIAGNOSIS No Discharge Core Measures Meds if any: Prescribed or Continued at Discharge Meds if any: NOT Prescribed or Continued at Discharge Congestive Heart Failure Inclusion Criteria At DC or during hospital stay patient has or had the following: CHF DIAGNOSIS No Discharge Core Measures Meds if any: Prescribed or Continued at Discharge Meds if any: NOT Prescribed or Continued at Discharge Cerebrovascular accident Inclusion Criteria At DC or during hospital stay patient has or had the following: CVA/TIA Diagnosis No Discharge Core Measures Meds if any: Prescribed or Continued at Discharge Meds if any: NOT Prescribed or Continued at Discharge Venous thromboembolism Inclusion Criteria VTE Diagnosis No VTE Type NONE VTE Confirmed by (Test) NONE Discharge Core Measures - Per Current guidelines, there needs to be overlap - treatment for the first 5 days of Warfarin therapy. - If discharged on Warfarin prior to 5 days of - overlap therapy, the patient will need to be - assessed for post discharge needs including - *Post discharge parental anticoagulation - *Warfarin and/or parental anticoagulation education - *Follow up date to check INR post discharge At least 5 days overlap therapy as Inpatient No Meds if any: Prescribed or Continued at Discharge Note: Overlap Therapy is Warfarin and Anticoagulant Meds if any: NOT Prescribed or Continued at Discharge
[2017-12-29] MEDS ORDERED: LOPERAMIDE2 M1 PO (13:11)
--- NOTE | 2017-12-29 13:14 | PN- Infect Dx ---
Subjective Subjective: Afebrile. She continues to report intermittent diarrhea, with what sounds like semi-formed stools. She notes improvement in the abdominal discomfort which she attributed to Ciprofloxacin. She continues to report occasional urinary hesitancy with no significant improvement since admission. Her left heel pain has improved. Objective Last 24 Hrs of Vital Signs/I&O Vital Signs Date Time Temp Pulse Resp B/P B/P Pulse O2 O2 Flow FiO2 Mean Ox Delivery Rate 12/29 1003 98.3 80 18 110/60 12/29 0914 80 110/60 12/29 0914 80 110/60 12/29 0725 98.3 83 18 119/63 98 12/28 2145 98.2 88 18 132/65 97 Room Air 12/28 2116 88 132/65 12/28 1540 98.1 71 18 98/50 99 Room Air 12/28 1430 114/70 12/28 1315 Room Air 12/28 1311 Room Air Intake & Output 12/29 1600 12/29 0800 12/29 0000 Intake Total 400 1000 Output Total 1500 1200 Balance -1100 -200 Intake, Oral 400 1000 Number 2 2 Bowel Movements Output, Urine 1500 1200 Physical Exam Other Physical Findings: She appears comfortable in no acute distress Lungs are clear Heart regular rhythm without murmur Abdomen is mildly distended, nontender with positive bowel sounds Back questionable bilateral CVA tenderness Extremities minimal inflammation in the left heel Results Last 24 Hours of Lab Results: Laboratory Tests 12/29 0739 Chemistry Sodium (137 - 145 mmol/L) 136 L Potassium (3.5 - 5.1 mmol/L) 3.7 Chloride (98 - 107 mmol/L) 107 Carbon Dioxide (22 - 30 mmol/L) 25 Anion Gap (5 - 16) 5 BUN (7 - 17 mg/dL) 15 Creatinine (0.5 - 1.0 mg/dL) 0.8 Estimated GFR (>60 ml/min) > 60 BUN/Creatinine Ratio (7 - 25 %) 18.8 Coagulation PT (9.4 - 12.5 SEC) 29.5 H INR (0.90 - 1.19) 2.68 H Hematology CBC w Diff NO MAN DIFF REQ WBC (4.8 - 10.8 /CUMM) 11.4 H RBC (4.20 - 5.40 /CUMM) 3.14 L Hgb (12.0 - 16.0 G/DL) 9.3 L Hct (37 - 47 %) 27.5 L MCV (81.0 - 99.0 FL) 87.8 MCH (27.0 - 31.0 PG) 29.6 MCHC (33.0 - 37.0 G/DL) 33.6 RDW (11.5 - 14.5 %) 17.8 H Plt Count (130 - 400 /CUMM) 418 H MPV (7.4 - 10.4 FL) 7.1 L Gran % (42.2 - 75.2 %) 80.3 H Lymphocytes % (20.5 - 51.1 %) 11.7 L Monocytes % (1.7 - 9.3 %) 7.1 Eosinophils % (0 - 5 %) 0.4 Basophils % (0.0 - 2.0 %) 0.5 Absolute Granulocytes (1.4 - 6.5 /CUMM) 9.1 H Absolute Lymphocytes (1.2 - 3.4 /CUMM) 1.3 Absolute Monocytes (0.10 - 0.60 /CUMM) 0.8 H Absolute Eosinophils (0.0 - 0.7 /CUMM) 0 Absolute Basophils (0.0 - 0.2 /CUMM) 0.1 Last 24 Hours of Fredi Results: Blood cultures December 27 negative Assessment/Plan ID Impression: Overall stable, with her temperatures remaining normal (on steroids) and with her white blood cell count decreased, now on Amoxicillin, Day 5 of treatment, for E. coli bacteremia, presumably of urological origin, with continued urinary complaints, though it is difficult to interpret this given her multiple somatic complaints. Her left heel inflammation appears to have improved on the increased dose of steroids, which should be able to be tapered. Her chronic, nonhealing left great toe plantar ulcer raises concern for underlying osteomyelitis and further evaluation, for example with an MRI of the left foot, can be pursued as an outpatient. Suggestion: 1. Would taper her steroids (can discuss with her solderer dipper, Dr. Amaya) 2. Would pursue an MRI of the left foot as an outpatient 3. Further evaluation of her GI symptoms as an outpatient 4. Continue Amoxicillin for 9 more days
[2017-12-29 15:27] VITALS: BP 111/62
[2017-12-29 21:18] VITALS: BP 120/68
[2017-12-30 06:30] VITALS: BP 140/80
--- NOTE | 2017-12-30 07:36 | PN- Housestaff ---
Alix Howard 12/30/17 0736: Subjective Follow-up For: 1. Rhematoid arthritis flare up 2. UTI Subjective: Patient was seen and examined at bedside. She has no complaints. The pain and erythema in he heel is better. She could not complete her PT evaluation yesterday because she got very tired. She is waiting for her insurance approval for placment in a short term rehab. Review of Systems Constitutional: Reports: see HPI. Objective Last 24 Hrs of Vital Signs/I&O Vital Signs Date Time Temp Pulse Resp B/P B/P Pulse O2 O2 Flow FiO2 Mean Ox Delivery Rate 12/30 0630 98.1 79 20 140/80 96 Room Air 12/29 2118 98.2 83 20 120/68 96 Room Air 12/29 2023 83 120/68 12/29 1527 97.8 94 18 111/62 97 Room Air 12/29 1003 98.3 80 18 110/60 12/29 0914 80 110/60 12/29 0914 80 110/60 Intake & Output 12/30 1600 12/30 0800 12/30 0000 Intake Total 480 840 Output Total 900 850 Balance -420 -10 Intake, Oral 480 840 Output, Urine 900 850 Physical Exam General Appearance: Alert, Oriented X3, Cooperative, No Acute Distress Skin: No Rashes Cardiovascular: Regular Rate, Normal S1 Lungs: Clear to Auscultation Abdomen: Normal Bowel Sounds, Soft, No Tenderness Extremities: Normal Pulses Last 24 Hrs of Lab/Fredi Results Last 24 Hrs of Labs/Mics: Laboratory Tests 12/30/17 0600: Anion Gap 6, Estimated GFR > 60, BUN/Creatinine Ratio 22.9, PT 27.8 H, INR 2.53 H, CBC w Diff NO MAN DIFF REQ, RBC 3.07 L, MCV 86.9, MCH 29.7, MCHC 34.2, RDW 17.6 H, MPV 7.0 L, Gran % 80.7 H, Lymphocytes % 12.8 L, Monocytes % 6.0, Eosinophils % 0.4, Basophils % 0.1, Absolute Granulocytes 9.0 H, Absolute Lymphocytes 1.4, Absolute Monocytes 0.7 H, Absolute Eosinophils 0, Absolute Basophils 0 Assessment/Plan Assessment: Patient today appears to be improving. Patient remains afebrile on Amoxicillin with a steady improvement in leukocytosis which has decreased today, currently on prednisone taper. Patient's blood cultures and urine culture are growing pansensitive Escherichia coli. Patient's heel pain has improved with steroids. Her Prednsone dose has been reduced to 20mg today. Patient is on the general medical floor, currently being treated for the followin. Escherichia coli bacteremia 2. UTI 3. Rheumatoid arthritis flare 4. Hypertension, hyperlipidemia, Atrial fibrillation on coumadin, GERD 5. Supratherapeutic INR PLAN: 1. Left heel swelling and pain -Pain and swelling in the heel improving. H -Leukocytosis of 11.2(improving) -Rhematology follow up outpatient -ID consult appreciated. * Discontinued Ciprofloxacin * Continue Augmentin 500mg q8 h for 9 days -I talked to on the phone. He recommended a taper for her steroids: 20mg today, 10mg for 3 days followed by a return to the baseline 5mg BID dose. 2. Lekocytosis -Steroid induced vs rhematoid flare vs Infection -Pneumonia/Atelectasis on Chest X-ray. E.coli bactremia -ID consult appreciated. Yunier follow recommendation -Trend CBC 3. Hypertension We will continue the patient on her home meds 4. Diarrhea -Malabsorption vs Seondary to Vasculitis vs C.diff -C.diff negative -Stool culture unremarkable -Will order fecal elastase and lactoferrin to rule out malabsorption The patient is due for discharge to an [facility], pending approval. She has 8 stairs to go up her to her house and 13 stairs to reach her bedroom. She is unsteady on her feet and is weak in her arms following her Rheumatoid flare, would be an extremely unsafe discharge home. Notably, the patient was fairly independent at baseline but has deconditioned owing to her Rheumatoid arthritis flare. She would definitely benefit from a short term rehab. DVT prophylaxis Code status: Full code Problem List: 1. Leukocytosis 2. Weakness Pain Ratin Pain Location: heel Pain Goal: Remain pain free Pain Plan: pathway Tomorrow's Labs & Rationales: cbc, bep and inr Yasmine Henderson 12/30/17 1112: Attending Review Statement Attending Statement Attending MD Statement: examined this patient, discuss w/resident/PA/STRAIGHT TRUCK DRIVER, agreed w/resident/PA/STRAIGHT TRUCK DRIVER, discussed with family, reviewed EMR data (avail), discussed with nursing, discussed with case mgmt, reviewed images, amended to note Attending Assessment/Plan: Patient with no new complaints. Patient is medically stable for discharge to rehab facility on PO abx. Prednisone taper as per rheumatology. Needs to follow up with her clinical rn after discharge and consider repeat imaging as outpatient of left ankle. Anticipate discharge soon. Awaiting insurance approval.
[2017-12-30 08:14] LABS: ABSOLUTE BASOPHIL COUNT 0 /CUMM (0.0-0.2); ABSOLUTE EOSINOPHIL COUNT 0 /CUMM (0.0-0.7); ABSOLUTE LYMPH COUNT 1.4 /CUMM (1.2-3.4); ABSOLUTE MONOCYTE COUNT 0.7 /CUMM (0.10-0.60); BASOPHIL % 0.1 % (0.0-2.0); EOSINOPHIL % 0.4 % (0-5); GRANULOCYTE % 80.7 % (42.2-75.2); HEMATOCRIT 26.7 % (37-47); MEAN CORPUSCULAR HGB 29.7 PG (27.0-31.0); MEAN CORPUSCULAR HGB CONC 34.2 G/DL (33.0-37.0); MEAN CORPUSCULAR VOLUME 86.9 FL (81.0-99.0); PLATELET COUNT 417 /CUMM (130-400); RBC DISTRIBUTION WIDTH 17.6 % (11.5-14.5); RED BLOOD CELL CT 3.07 /CUMM (4.20-5.40); WHITE BLOOD CELL COUNT 11.2 /CUMM (4.8-10.8)
[2017-12-30 08:35] LABS: PT 27.8 SEC (9.4-12.5)
[2017-12-30 08:54] VITALS: BP 110/60
[2017-12-30 14:08] VITALS: BP 112/58
[2017-12-30] MEDS ORDERED: PREDNISONE5 M1 PO (14:15)
[2017-12-30 22:06] VITALS: BP 131/62
--- NOTE | 2017-12-31 07:18 | PN- Housestaff ---
Alix Howard 12/31/17 0717: Subjective Follow-up For: Rheumatoid arthritis flare UTI Subjective: Patient was seen and examined at bedside. She reports some diarrhea overnight. She has no new complaints. Review of Systems Constitutional: Reports: see HPI. Objective Last 24 Hrs of Vital Signs/I&O Vital Signs Date Time Temp Pulse Resp B/P B/P Pulse O2 O2 Flow FiO2 Mean Ox Delivery Rate 12/31 1005 93 130/70 12/31 1004 93 130/70 12/31 0719 98.5 93 24 130/70 92 12/30 2206 98.5 100 24 131/62 99 Room Air 12/30 2030 100 130/62 12/30 1408 98.6 91 24 112/58 97 Room Air Intake & Output 12/31 1600 12/31 0800 12/31 0000 Intake Total 240 410 Output Total 150 1200 Balance 90 -790 Intake, IV 10 Intake, Oral 240 400 Number 1 0 Bowel Movements Output, Urine 150 1200 Physical Exam General Appearance: Alert, Oriented X3, Cooperative, No Acute Distress Skin: No Rashes Neck: Supple Cardiovascular: Regular Rate, Normal S1, Normal S2 Lungs: Clear to Auscultation Abdomen: Normal Bowel Sounds, Soft, No Tenderness Extremities: swelling in her heel improved Assessment/Plan Assessment: Patient is doing well. Patient remains afebrile on Amoxicillin with a steady improvement in leukocytosis which has decreased today, currently on prednisone taper. Patient's blood cultures and urine culture are growing pansensitive Escherichia coli. Patient's heel pain has improved with steroids. Her Prednisone dose has been reduced to 10mg today. Patient is on the general medical floor, currently being treated for the followin. Escherichia coli bacteremia 2. UTI 3. Rheumatoid arthritis flare 4. Hypertension, hyperlipidemia, Atrial fibrillation on coumadin, GERD 5. Supratherapeutic INR PLAN: 1. Left heel swelling and pain -Pain and swelling in the heel improving. -Leukocytosis of 11.4(improving) -Rhematology follow up outpatient -ID consult appreciated. * Discontinued Ciprofloxacin * Continue Augmentin 500mg q8 h for 8 days -I talked to on the phone. He recommended a taper for her steroids: 20mg today, 10mg for 3 days followed by a return to the baseline 5mg BID dose. 2. Lekocytosis -Steroid induced vs rhematoid flare vs Infection -Pneumonia/Atelectasis on Chest X-ray. E.coli bactremia -ID consult appreciated. Yunier follow recommendation -Trend CBC 3. Hypertension We will continue the patient on her home meds 4. Diarrhea -Malabsorption vs Seondary to Vasculitis vs C.diff -C.diff negative -Stool culture unremarkable -Will order fecal elastase and lactoferrin to rule out malabsorption The patient is due for discharge to an [facility], pending approval. She has 8 stairs to go up her to her house and 13 stairs to reach her bedroom. She is unsteady on her feet and is weak in her arms following her Rheumatoid flare, would be an extremely unsafe discharge home. Notably, the patient was fairly independent at baseline but has deconditioned owing to her Rheumatoid arthritis flare. She would definitely benefit from a short term rehab. DVT prophylaxis Code status: Full code Problem List: 1. E coli bacteremia 2. Pleural effusion 3. Gram-negative bacteremia 4. Heel lesion 5. Heel pain 6. Osteomyelitis 7. Rheumatoid arthritis 8. Toe ulcer Pain Ratin Pain Location: heel Pain Goal: Pain 4 or less Pain Plan: pathway Tomorrow's Labs & Rationales: none Yasmine Henderson 12/31/17 1114: Attending MD Review Statement Attending Statement Attending MD Statement: examined this patient, discuss w/resident/PA/BENZENE WASHER, agreed w/resident/PA/BENZENE WASHER, discussed with family, reviewed EMR data (avail), discussed with nursing, discussed with case mgmt, reviewed images, amended to note Attending Assessment/Plan: Awaiting insurance approval. Medically stabe. Working with PT.
[2017-12-31 07:19] VITALS: BP 130/70
[2017-12-31 08:24] LABS: PT 31.4 SEC (9.4-12.5)
[2017-12-31 10:01] LABS: ABSOLUTE BASOPHIL COUNT 0 /CUMM (0.0-0.2); ABSOLUTE EOSINOPHIL COUNT 0 /CUMM (0.0-0.7); ABSOLUTE GRANULOCYTE CT 8.6 /CUMM (1.4-6.5); ABSOLUTE MONOCYTE COUNT 0.8 /CUMM (0.10-0.60); BASOPHIL % 0.3 % (0.0-2.0); EOSINOPHIL % 0.3 % (0-5); GRANULOCYTE % 75.4 % (42.2-75.2); HEMATOCRIT 31.1 % (37-47); MEAN CORPUSCULAR HGB 29.2 PG (27.0-31.0); MEAN CORPUSCULAR HGB CONC 33.2 G/DL (33.0-37.0); MEAN CORPUSCULAR VOLUME 87.9 FL (81.0-99.0); MEAN PLATELET VOLUME 6.7 FL (7.4-10.4); PLATELET COUNT 482 /CUMM (130-400); RBC DISTRIBUTION WIDTH 17.9 % (11.5-14.5); RED BLOOD CELL CT 3.54 /CUMM (4.20-5.40); WHITE BLOOD CELL COUNT 11.4 /CUMM (4.8-10.8)
--- NOTE | 2017-12-31 13:01 | PN- Infect Dx ---
Subjective Subjective: Afebrile on steroids. She reports several soft stools this morning with continued mild abdominal discomfort. She continues to complain of back pain though notes improvement in her urination. She continues to complain of pain from her arthritis but she apparently has been ambulating better. Objective Last 24 Hrs of Vital Signs/I&O Vital Signs Date Time Temp Pulse Resp B/P B/P Pulse O2 O2 Flow FiO2 Mean Ox Delivery Rate 12/31 1005 93 130/70 12/31 1004 93 130/70 12/31 0719 98.5 93 24 130/70 92 12/30 2206 98.5 100 24 131/62 99 Room Air 12/30 2030 100 130/62 12/30 1408 98.6 91 24 112/58 97 Room Air Intake & Output 12/31 1600 12/31 0800 12/31 0000 Intake Total 240 410 Output Total 150 1200 Balance 90 -790 Intake, IV 10 Intake, Oral 240 400 Number 1 0 Bowel Movements Output, Urine 150 1200 Physical Exam Other Physical Findings: She appears comfortable in no acute distress Abdomen is soft, nontender with positive bowel sounds Back no CVA tenderness Results Last 24 Hours of Lab Results: Laboratory Tests 12/31 12/31 0906 0600 Chemistry Sodium (137 - 145 mmol/L) 136 L Potassium (3.5 - 5.1 mmol/L) 3.6 Chloride (98 - 107 mmol/L) 105 Carbon Dioxide (22 - 30 mmol/L) 24 Anion Gap (5 - 16) 7 BUN (7 - 17 mg/dL) 16 Creatinine (0.5 - 1.0 mg/dL) 0.7 Estimated GFR (>60 ml/min) > 60 BUN/Creatinine Ratio (7 - 25 %) 22.9 Coagulation PT (9.4 - 12.5 SEC) 31.4 H INR (0.90 - 1.19) 2.85 H Hematology CBC w Diff NO MAN DIFF REQ WBC (4.8 - 10.8 /CUMM) 11.4 H RBC (4.20 - 5.40 /CUMM) 3.54 L Hgb (12.0 - 16.0 G/DL) 10.3 L Hct (37 - 47 %) 31.1 L MCV (81.0 - 99.0 FL) 87.9 MCH (27.0 - 31.0 PG) 29.2 MCHC (33.0 - 37.0 G/DL) 33.2 RDW (11.5 - 14.5 %) 17.9 H Plt Count (130 - 400 /CUMM) 482 H MPV (7.4 - 10.4 FL) 6.7 L Gran % (42.2 - 75.2 %) 75.4 H Lymphocytes % (20.5 - 51.1 %) 17.2 L Monocytes % (1.7 - 9.3 %) 6.8 Eosinophils % (0 - 5 %) 0.3 Basophils % (0.0 - 2.0 %) 0.3 Absolute Granulocytes (1.4 - 6.5 /CUMM) 8.6 H Absolute Lymphocytes (1.2 - 3.4 /CUMM) 2.0 Absolute Monocytes (0.10 - 0.60 /CUMM) 0.8 H Absolute Eosinophils (0.0 - 0.7 /CUMM) 0 Absolute Basophils (0.0 - 0.2 /CUMM) 0 Last 24 Hours of Fredi Results: Blood cultures December 27 negative Assessment/Plan ID Impression: Stable, with her temperatures remaining normal (on steroids) and with her white blood cell count only minimally elevated, on Amoxicillin, Day 7 of treatment for E. coli bacteremia, presumably of urological origin, with improvement in her urinary symptoms. Her chronic, nonhealing left great toe plantar ulcer raises concern for underlying osteomyelitis and further evaluation, for example with an MRI of the left foot, can be pursued as an outpatient. Suggestion: 1. Would pursue an MRI of the left foot as an outpatient 2. Further management of her GI symptoms per GI 3. Continue Amoxicillin for 7 more days
[2017-12-31 14:30] VITALS: BP 95/52
[2017-12-31 15:29] VITALS: BP 92/52
[2017-12-31 22:04] VITALS: BP 100/86
[2018-01-01 05:30] VITALS: BP 120/68
--- NOTE | 2018-01-01 07:26 | PN- Housestaff ---
Alix Howard 01/01/18 0726: Subjective Follow-up For: Rheumatoid arthritis flare UTI Subjective: Patient was seen and examined at bedside. She has no new complaints. She is awaiting insurance approval for placement at a STR. Review of Systems Constitutional: Reports: see HPI. Objective Last 24 Hrs of Vital Signs/I&O Vital Signs Date Time Temp Pulse Resp B/P B/P Pulse O2 O2 Flow FiO2 Mean Ox Delivery Rate 01/02 0848 130/68 01/02 0847 130/68 01/02 0800 96 Room Air 01/02 0614 98.5 98 20 130/66 96 01/01 2207 98.3 89 18 116/70 99 Room Air 01/01 2033 89 116/70 01/01 1528 98.4 95 18 120/60 99 Intake & Output 01/02 1600 01/02 0800 01/02 0000 Intake Total 480 970 Output Total 600 850 Balance -120 120 Intake, IV 0 10 Intake, Oral 480 960 Number 0 0 Bowel Movements Output, Urine 600 850 Physical Exam General Appearance: Alert, Oriented X3, Cooperative, No Acute Distress Skin: No Rashes, No Breakdown Cardiovascular: Regular Rate, Normal S1, Normal S2 Lungs: Clear to Auscultation, Normal Air Movement Abdomen: Normal Bowel Sounds, Soft, No Tenderness Assessment/Plan Assessment: Patient is doing well. Patient remains afebrile on Amoxicillin with a steady improvement in leukocytosis which has decreased today, currently on prednisone taper. Patient's blood cultures and urine culture are growing pansensitive Escherichia coli. Patient's heel pain has improved with steroids. Her Prednisone dose has been reduced to 10mg today. Patient is on the general medical floor, currently being treated for the followin. Escherichia coli bacteremia 2. UTI 3. Rheumatoid arthritis flare 4. Hypertension, hyperlipidemia, Atrial fibrillation on coumadin, GERD 5. Supratherapeutic INR PLAN: 1. Left heel swelling and pain -Pain and swelling in the heel improving. -Leukocytosis of 11.4(improving) -Rhematology follow up outpatient -ID consult appreciated. * Discontinued Ciprofloxacin * Continue Augmentin 500mg q8 h for 8 days -I talked to on the phone. He recommended a taper for her steroids: 20mg today, 10mg for 3 days followed by a return to the baseline 5mg BID dose. 2. Lekocytosis -Steroid induced vs rhematoid flare vs Infection -Pneumonia/Atelectasis on Chest X-ray. E.coli bactremia -ID consult appreciated. Yunier follow recommendation -Trend CBC 3. Hypertension We will continue the patient on her home meds 4. Diarrhea -Malabsorption vs Seondary to Vasculitis vs C.diff -C.diff negative -Stool culture unremarkable -Will order fecal elastase and lactoferrin to rule out malabsorption The patient is due for discharge to an [facility], pending approval. She has 8 stairs to go up her to her house and 13 stairs to reach her bedroom. She is unsteady on her feet and is weak in her arms following her Rheumatoid flare, would be an extremely unsafe discharge home. Notably, the patient was fairly independent at baseline but has deconditioned owing to her Rheumatoid arthritis flare. She would definitely benefit from a short term rehab. DVT prophylaxis Code status: Full code Problem List: 1. E coli bacteremia 2. Heel lesion 3. Heel pain Pain Ratin Pain Location: none Pain Goal: Remain pain free Pain Plan: none Tomorrow's Labs & Rationales: none Yasmine Henderson 01/01/18 1132: Attending MD Review Statement Attending Statement Attending MD Statement: examined this patient, discuss w/resident/PA/SNACK FOODS MIXER OPERATOR, agreed w/resident/PA/SNACK FOODS MIXER OPERATOR, discussed with family, reviewed EMR data (avail), discussed with nursing, discussed with case mgmt, reviewed images, amended to note Attending Assessment/Plan: Awaiting insurance approval. Medically stabe. Working with PT.
[2018-01-01 08:15] LABS: PT 32.6 SEC (9.4-12.5)
--- NOTE | 2018-01-01 13:24 | PN- Infect Dx ---
Subjective Subjective: Afebrile on steroids. She feels well today, with no diarrhea. She did have 5 soft stools yesterday, associated with some abdominal discomfort. She reports improvement in her urinary symptoms and is ambulating better, with decreased heel pain. Objective Last 24 Hrs of Vital Signs/I&O Vital Signs Date Time Temp Pulse Resp B/P B/P Pulse O2 O2 Flow FiO2 Mean Ox Delivery Rate 01/01 0910 70 120/68 01/01 0909 70 120/68 01/01 0530 98.0 70 20 120/68 97 Room Air 12/31 2204 98.0 85 20 100/86 97 Room Air 12/31 2132 85 100/85 12/31 1529 98.2 93 22 92/52 98 Room Air 12/31 1430 95/52 Intake & Output 01/01 1600 01/01 0800 01/01 0000 Intake Total 240 410 Output Total 400 350 Balance -160 60 Intake, IV 10 Intake, Oral 240 400 Number 2 Bowel Movements Output, Urine 400 350 Physical Exam Other Physical Findings: She appears comfortable in no acute distress Abdomen soft, nontender The remainder of her exam is unchanged Results Last 24 Hours of Lab Results: Laboratory Tests 01/01 0734 Coagulation PT (9.4 - 12.5 SEC) 32.6 H INR (0.90 - 1.19) 2.96 H Last 24 Hours of Fredi Results: No recent cultures Assessment/Plan ID Impression: Stable, with her temperatures remaining normal (on steroids) and with her white blood cell count only minimally elevated, on Amoxicillin, Day 8 of treatment for E. coli bacteremia, presumably of urological origin, with apparent resolution of her urinary symptoms. Her chronic, nonhealing left great toe plantar ulcer raises concern for underlying osteomyelitis and further evaluation, for example with an MRI of the left foot, can be pursued as an outpatient. Suggestion: 1. Would pursue an MRI of the left foot as an outpatient 2. Continue Amoxicillin for 6 more days
[2018-01-01 15:28] VITALS: BP 120/60
[2018-01-01 22:07] VITALS: BP 116/70
[2018-01-02 06:14] VITALS: BP 130/66
--- NOTE | 2018-01-02 11:42 | PN- Housestaff ---
Pablo Brown 01/02/18 1141: Subjective Follow-up For: Rheumatoid arthritis flare Leukocytosis Subjective: Patient seen and examined at bedside. She was enjoying her breakfast and was talking with me with a smile on her face. She was concerned about bed placement in rehab because her company is not paying for her rehab. She denies fever, chills, chest pain, palpitation, abdominal pain, diarrhea, constipation, burning micturition. Review of Systems Constitutional: Reports: see HPI. Objective Last 24 Hrs of Vital Signs/I&O Vital Signs Date Time Temp Pulse Resp B/P B/P Pulse O2 O2 Flow FiO2 Mean Ox Delivery Rate 01/02 1457 97.4 91 17 98/53 97 Room Air 01/02 0848 130/68 01/02 0847 130/68 01/02 0800 96 Room Air 01/02 0614 98.5 98 20 130/66 96 01/01 2207 98.3 89 18 116/70 99 Room Air 01/01 2033 89 116/70 Intake & Output 01/02 1600 01/02 0800 01/02 0000 Intake Total 1000 480 970 Output Total 801 600 850 Balance 199 -120 120 Intake, IV 0 10 Intake, Oral 1000 480 960 Number 0 0 Bowel Movements Output, Stool 1 Output, Urine 800 600 850 Physical Exam General Appearance: Alert, Oriented X3, Cooperative, No Acute Distress Assessment/Plan Assessment: 57-year-old female with past medical history of hypertension, [place], rheumatoid arthritis, 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 On examination, she has multiple deformities in her hands and feet her rheumatoid arthritis. There is significant swelling, tenderness and the left calcaneum. Vitals in the ED were T-max: 102, BP: 91/51, HR: 88 Her white blood count: 16.3, Hb: 10.9, and Na: 132, K: 3.4. Her creatinine was 0.9, calcium: 8.2, total protein: 5.9 with an albumin of 3.0. Her ESR is 105. Lactate was normal at 1. Problems list: *Rheumatoid flare *E. coli bacteremia *UTI *Supratherapeutic INR *Hypertension, hyperlipidemia, atrial fibrillation on Coumadin, GERD Rheumatoid flare: Patient is doing well. Currently on prednisone taper.Patient's heel pain has improved with steroids. Her Prednisone dose has been reduced to 10mg today. Specialty Manufacturing Supervisor recommended a taper for her steroids: 20mg today, 10mg for 3 days followed by a return to the baseline 5mg BID dose. Pain and swelling in the heel improved. Leukocytosis: Leukocytosis subsided. It was caused by gram-negative bacteremia E. coli in urine densities in the blood. Infectious disease recommendation appreciated. Amoxicillin recommended. Hypertension: Patient home medication for blood pressure will be continued; *Patient will be discharged to short-term rehab. Her company is not paying for rehab. Awaiting case hardener for bed placement. Diarrhea : Diarrhea seems to be due to malabsorption patient diarrhea, workup awaited Full code Problem List: 1. Leukocytosis 2. Rheumatoid arthritis 3. Osteomyelitis Pain Ratin Pain Location: No pain Pain Goal: Remain pain free Pain Plan: Pain management pathway Tomorrow's Labs & Rationales: No labs [facility] 01/02/18 1242: Attending MD Review Statement Attending Statement Attending MD Statement: examined this patient, discuss w/resident/PA/DIRECTOR CLIENT, agreed w/resident/PA/DIRECTOR CLIENT, reviewed EMR data (avail), discussed with nursing Attending Assessment/Plan: Pt was seen and evaluated. Chart reviewed. Reports sl improvement in diarrhea. Appreciate SUMAN drew Awaiting STR placement/insurane approval
[2018-01-02 14:57] VITALS: BP 98/53
[2018-01-02 18:53] LABS: PT 32.7 SEC (9.4-12.5)
[2018-01-02 21:23] VITALS: BP 122/64
[2018-01-03 06:23] VITALS: BP 122/70
[2018-01-03 08:15] LABS: PT 26.3 SEC (9.4-12.5)
--- NOTE | 2018-01-03 08:35 | PN- Housestaff ---
Pablo Brown 01/03/18 0835: Subjective Follow-up For: Rheumatoid arthritis, leukocytosis Subjective: Patient seen and examined at bedside. She was concerned about bed placement in rehab because her company is not paying for her rehab. She denies fever, chills , chest pain, palpitation, abdominal pain, diarrhea, constipation, burning micturition. Review of Systems Constitutional: Reports: see HPI. Objective Last 24 Hrs of Vital Signs/I&O Vital Signs Date Time Temp Pulse Resp B/P B/P Pulse O2 O2 Flow FiO2 Mean Ox Delivery Rate 01/03 1501 98.0 89 20 98/54 99 01/03 0955 120/70 01/03 0800 97 Room Air 01/03 0623 98.4 75 20 122/70 100 01/02 2147 64 122/64 01/02 2123 98.1 78 19 64 98 Room Air Intake & Output 01/03 1600 01/03 0800 01/03 0000 Intake Total 1200 240 400 Output Total 801 1000 1075 Balance 399 -760 -675 Intake, IV 0 Intake, Oral 1200 240 400 Number 3 Bowel Movements Output, Stool 1 Output, Urine 800 1000 1075 Physical Exam General Appearance: Alert, Oriented X3, Cooperative Assessment/Plan Assessment: 57-year-old female with past medical history of hypertension, [place], rheumatoid arthritis, 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 On examination, she has multiple deformities in her hands and feet her rheumatoid arthritis. There is significant swelling, tenderness and the left calcaneum. Vitals in the ED were T-max: 102, BP: 91/51, HR: 88 Her white blood count: 16.3, Hb: 10.9, and Na: 132, K: 3.4. Her creatinine was 0.9, calcium: 8.2, total protein: 5.9 with an albumin of 3.0. Her ESR is 105. Lactate was normal at 1. Problems list: *Rheumatoid flare *E. coli bacteremia *UTI *Supratherapeutic INR *Hypertension, hyperlipidemia, atrial fibrillation on Coumadin, GERD Rheumatoid flare: Patient is doing well. Currently on prednisone taper.Patient's heel pain has improved with steroids. Her Prednisone dose has been reduced to 10mg today. Sandstone Splitter recommended a taper for her steroids: 20mg today, 10mg for 3 days followed by a return to the baseline 5mg BID dose. Pain and swelling in the heel improved. Leukocytosis: Leukocytosis subsided. It was caused by gram-negative bacteremia E. coli in urine densities in the blood. Infectious disease recommendation appreciated. Amoxicillin recommended. Hypertension: Patient home medication for blood pressure will be continued; *Patient will be discharged to short-term rehab. Her company is not paying for rehab. Awaiting director case for bed placement *She will go home on Thursday Diarrhea : Diarrhea seems to be due to malabsorption patient diarrhea, workup awaited Full code INR is normal Problem List: 1. Leukocytosis 2. Rheumatoid arthritis Pain Ratin Pain Location: No Pain Goal: Remain pain free Pain Plan: Pain management. Tomorrow's Labs & Rationales: No labs Jonathan NAVARRO,Amir 01/03/18 1051: Attending MD Review Statement Attending Statement Attending MD Statement: examined this patient, discuss w/resident/PA/SENIOR NET DEVELOPER ARCHITECT, agreed w/resident/PA/SENIOR NET DEVELOPER ARCHITECT, reviewed EMR data (avail), discussed with nursing Attending Assessment/Plan: Pt was seen and evaluated. Chart reviewed. INR therapeutic. No recent labs Appreciate ID eval Awaiting STR placement/insurane approval
[2018-01-03 15:01] VITALS: BP 98/54
[2018-01-03 21:22] VITALS: BP 106/65
[2018-01-04 06:29] VITALS: BP 110/62; BP 136/78
[2018-01-04 08:16] LABS: PT 23.2 SEC (9.4-12.5)
--- NOTE | 2018-01-04 08:33 | PN- Housestaff ---
Alix Howard 01/04/18 0833: Subjective Follow-up For: RA arthrtis flare (resolved) UTI ( resolved) General Deconditioning Subjective: Patient was seen and examined at bedside. She states she has gotten much stronger and is looking forward to trying to do the stairs. Denies fever, chills , nausea, vomiting. Still has diarrhea relieved with Loperamide. Review of Systems Constitutional: Reports: see HPI. Objective Last 24 Hrs of Vital Signs/I&O Vital Signs Date Time Temp Pulse Resp B/P B/P Pulse O2 O2 Flow FiO2 Mean Ox Delivery Rate 01/04 1200 70 110/68 01/04 0912 110 104/64 01/04 0911 110 104/64 01/04 0800 97 Room Air 01/04 0629 98.2 62 18 110/62 98 01/03 2122 98.1 79 18 106/65 97 Room Air 01/03 2026 79 106/65 01/03 1501 98.0 89 20 98/54 99 Intake & Output 01/04 1600 01/04 0800 01/04 0000 Intake Total 240 500 Output Total 600 675 Balance -360 -175 Intake, IV 0 Intake, Oral 240 500 Number 1 Bowel Movements Output, Urine 600 675 Physical Exam General Appearance: Alert, Oriented X3, Cooperative, No Acute Distress Neck: Supple Cardiovascular: Regular Rate, Normal S1, Normal S2, No Murmurs Lungs: Clear to Auscultation Abdomen: Normal Bowel Sounds, Soft, No Tenderness Assessment/Plan Assessment: Patient is doing well. Patient remains afebrile on Amoxicillin. Her Prednisone is back to the baseline level of 5mg BID. She is actively working with Physical Therapy for them to clear her to be able to do stairs at home Patient is on the general medical floor, currently being treated for the followin. Escherichia coli bacteremia 2. UTI 3. Rheumatoid arthritis flare 4. Hypertension, hyperlipidemia, Atrial fibrillation on coumadin, GERD 5. Supratherapeutic INR PLAN: 1. Left heel swelling and pain -Pain and swelling in the heel improving. -Rhematology follow up outpatient -ID consult appreciated. Cotinue Amoxicillin -The patient is down to her baseline dose of 5mg BID of Prednisone 2. Hypertension We will continue the patient on her home meds 3. Diarrhea -Probably antibiotic induced at this time -Well controlled with Loperamide The patient is due for discharge to an [facility], pending approval. She has 8 stairs to go up her to her house and 13 stairs to reach her bedroom. She is unsteady on her feet and is weak in her arms following her Rheumatoid flare, would be an extremely unsafe discharge home. Notably, the patient was fairly independent at baseline but has deconditioned owing to her Rheumatoid arthritis flare. She would definitely benefit from a short term rehab. DVT prophylaxis Code status: Full code Problem List: 1. Heel lesion 2. Heel pain 3. Rheumatoid arthritis Pain Ratin Pain Location: heel Pain Goal: Remain pain free Pain Plan: pathway Tomorrow's Labs & Rationales: inr Yasmine Henderson 01/04/18 1137: Attending MD Review Statement Attending Statement Attending MD Statement: examined this patient, discuss w/resident/PA/GEOPHYSICAL ENGINEER, agreed w/resident/PA/GEOPHYSICAL ENGINEER, discussed with family, reviewed EMR data (avail), discussed with nursing, discussed with case mgmt, reviewed images, amended to note Attending Assessment/Plan: Patient denies any new complaints. Feeling much better. Follow up with physical therapy for safe discharge planning. Follow up with her PCP in 1 week of discharge, Rheumatology in 2-3 weeks. Cosnider outpatient MRI foot repeat with her PCP.
[2018-01-04 12:00] VITALS: BP 110/68
[2018-01-04 14:47] VITALS: BP 100/64
[2018-01-05 02:00] VITALS: BP 107/60
[2018-01-05 06:34] VITALS: BP 124/80
--- NOTE | 2018-01-05 07:20 | PN- Housestaff ---
See Addendum Subjective Follow-up For: Pending PT clearance for discharge home Subjective: Patient was seen and examined at bedside. She has been doing better. She states she has been trying to work harad with the PT. She is not sure if she got her evening dose of Prednisone. She was reassured it was duly administered. She has no other complaints. Review of Systems Constitutional: Reports: see HPI. Objective Last 24 Hrs of Vital Signs/I&O Vital Signs Date Time Temp Pulse Resp B/P B/P Pulse O2 O2 Flow FiO2 Mean Ox Delivery Rate 01/05 1032 97.5 131 100/58 01/05 1031 131 100/58 01/05 0634 97.5 91 20 124/80 98 Room Air 01/04 2243 98.1 01/04 2123 78 100/50 01/04 1447 98.0 81 20 100/64 100 01/04 1200 70 110/68 Intake & Output 01/05 1600 01/05 0800 01/05 0000 Intake Total 480 1080 Output Total 300 1200 400 Balance -300 -720 680 Intake, IV 0 0 Intake, Oral 480 1080 Number 1 0 0 Bowel Movements Output, Urine 300 1200 400 Physical Exam General Appearance: Alert, Oriented X3, Cooperative, No Acute Distress Skin: No Rashes Cardiovascular: Regular Rate, Normal S1, Normal S2 Lungs: Clear to Auscultation Abdomen: Normal Bowel Sounds, Soft, No Tenderness, No Hepatospenomegaly Assessment/Plan Assessment: Patient is doing well. Patient remains afebrile on Amoxicillin. Her Prednisone is back to the baseline level of 5mg BID. She is actively working with Physical Therapy for them to clear her to be able to do stairs at home Patient is on the general medical floor, currently being treated for the followin. Escherichia coli bacteremia 2. UTI 3. Rheumatoid arthritis flare 4. Hypertension, hyperlipidemia, Atrial fibrillation on coumadin, GERD 5. Supratherapeutic INR PLAN: 1. Left heel swelling and pain (resolved) -Pain and swelling in the heel improving steadily -Rhematology follow up outpatient -ID consult appreciated. Cotinue Amoxicillin -The patient is down to her baseline dose of 5mg BID of Prednisone 2. Hypertension -We will continue the patient on her home meds -The patient does get borderline hypotesive at times. Would consider changing her anti-hypertensive dose. 3. Diarrhea -Probably antibiotic induced at this time -Well controlled with Loperamide Her INR todsy is 2.53. She continues to be on anti-coagulation The patient was denied by the insurance to go to the [facility]. She is currently working with PT to be cleared to go home. DVT prophylaxis Code status: Full code Problem List: 1. E coli bacteremia 2. Gram-negative bacteremia 3. Rheumatoid arthritis 4. Weakness Pain Ratin Pain Location: heel Pain Goal: Remain pain free Pain Plan: pathway Tomorrow's Labs & Rationales: INR
[2018-01-05 09:28] LABS: PT 27.8 SEC (9.4-12.5)
[2018-01-05 15:05] VITALS: BP 108/64
--- NOTE | 2018-01-05 15:16 | PN- Infect Dx ---
Subjective Subjective: Afebrile on steroids. She feels improved with her stools now formed, resolution of her urinary symptoms and decreased left heel pain. She reports progress with her physical therapy. Objective Last 24 Hrs of Vital Signs/I&O Vital Signs Date Time Temp Pulse Resp B/P B/P Pulse O2 O2 Flow FiO2 Mean Ox Delivery Rate 01/05 1505 97.9 93 20 108/64 99 Room Air 01/05 1032 97.5 131 100/58 01/05 1031 131 100/58 01/05 0634 97.5 91 20 124/80 98 Room Air 01/04 2243 98.1 01/04 2123 78 100/50 Intake & Output 01/05 1600 01/05 0800 01/05 0000 Intake Total 480 1080 Output Total 400 1200 400 Balance -400 -720 680 Intake, IV 0 0 Intake, Oral 480 1080 Number 2 0 0 Bowel Movements Output, Urine 400 1200 400 Physical Exam Other Physical Findings: She appears comfortable in no acute distress Abdomen is soft, nontender with positive bowel sounds Back no CVA tenderness Extremities left heel with a small blister medially, with no nodule noted Results Last 24 Hours of Lab Results: Laboratory Tests 01/05 0812 Coagulation PT (9.4 - 12.5 SEC) 27.8 H INR (0.90 - 1.19) 2.53 H Last 24 Hours of Fredi Results: No recent cultures Assessment/Plan ID Impression: Stable, with her temperatures remaining normal (on steroids) and with her last white blood cell count only minimally elevated, on Amoxicillin, Day 12 of treatment for E. coli bacteremia, presumably of urological origin, with resolution of her urinary symptoms. Her GI symptoms also appeared to have resolved. Her chronic, nonhealing left great toe plantar ulcer raises concern for underlying osteomyelitis and further evaluation, for example with an MRI of the left foot, can be pursued as an outpatient. Suggestion: 1. Further management of her left great toe plantar ulcer, for example with MRI , as an outpatient 2. Continue Amoxicillin for 2 more days
[2018-01-05 22:23] VITALS: BP 112/63
[2018-01-06 06:33] VITALS: BP 134/70
--- NOTE | 2018-01-06 07:13 | PN- Housestaff ---
Ollie Coombs 01/06/18 0713: Subjective Follow-up For: Pending PT clearance for discharge home Complaints: no complaints Subjective: Patient was seen and examined at bedside. She has been doing better. She states she has been trying to work harad with the PT. She has no other complaints. Review of Systems Constitutional: Reports: see HPI. Objective Last 24 Hrs of Vital Signs/I&O SEE VITALS Physical Exam General Appearance: Alert, Oriented X3, Cooperative, No Acute Distress Cardiovascular: Normal S1, Normal S2 Lungs: Normal Air Movement Abdomen: Soft, No Tenderness Neurological: Normal Speech, Strength at 5/5 X4 Ext, Normal Tone, Sensation Intact Assessment/Plan Assessment: Patient is doing well. Patient remains afebrile on Amoxicillin. Her Prednisone is back to the baseline level of 5mg BID. She is actively working with Physical Therapy for them to clear her to be able to do stairs at home Patient is on the general medical floor, currently being treated for the followin. Escherichia coli bacteremia 2. UTI 3. Rheumatoid arthritis flare 4. Hypertension, hyperlipidemia, Atrial fibrillation on coumadin, GERD 5. Supratherapeutic INR PLAN: 1. Left heel swelling and pain (resolved) -Pain and swelling in the heel improving steadily -Rhematology follow up outpatient -ID consult appreciated. Cotinue Amoxicillin -The patient is down to her baseline dose of 5mg BID of Prednisone 2. Hypertension -We will continue the patient on her home meds -The patient does get borderline hypotesive at times. Would consider changing her anti-hypertensive dose. 3. Diarrhea -Probably antibiotic induced at this time -Well controlled with Loperamide Her INR todsy is 2.53. She continues to be on anti-coagulation The patient was denied by the insurance to go to the [facility]. She is is cleared to go home. DVT prophylaxis Code status: Full code Problem List: 1. Heel lesion 2. Heel pain Pain Ratin Pain Location: HEEL Pain Goal: Remain pain free Pain Plan: TEYELNOL Tomorrow's Labs & Rationales: NONE Yasmine Henderson 01/06/18 1058: Attending Review Statement Attending Statement Attending MD Statement: examined this patient, discuss w/resident/PA/ROVING TECHNICIAN, agreed w/resident/PA/ROVING TECHNICIAN, discussed with family, reviewed EMR data (avail), discussed with nursing, discussed with case mgmt, reviewed images, amended to note Attending Assessment/Plan: Medically stable. Working with PT.
[2018-01-06] MEDS ORDERED: AMOXICILLIN500 M2 PO ×3 (11:48→13:25)
[2018-01-06] MEDS ORDERED: LOPERAMIDE2 M1 PO ×2 (11:48→13:25)
[2018-01-06] MEDS ORDERED: DIOVAN40 MG PO (13:20)
[2018-01-06 13:30] VITALS: BP 120/88
== END 2018-01-06 15:15 | DRG 546 ==
LOC: DELPENDDIS → ERH 07:46 → 2NB 15:36 → ERHI 15:36 → ENRESERV 16:35 → ENTRNSPT 17:31 → EDTRNSPTSTS 17:57 → EDTRNSPT 17:57 → 2NB 18:07 → CMPTRNSPT 18:12 → 2NB 12-24 08:49 → ENPENDDIS 12-27 08:42 → ENTRNSPT 01-06 14:52 → EDTRNSPTSTS 01-06 15:00 → EDTRNSPT 01-06 15:00 → CMPTRNSPT 01-06 15:12 → 2NB 01-06 15:15
PROVIDERS: Emergency Medicine; Hospitalist; Internal Medicine; Preventive Medicine Addiction Medicine; Student in an Organized Health Care Education/Training Program
DX: M06.9 Rheumatoid arthritis, unspecified (principal); E87.1 Hypo-osmolality and hyponatremia; N39.0 Urinary tract infection, site not specified; R78.81 Bacteremia; J90 Pleural effusion, not elsewhere classified; I25.10 Atherosclerotic heart disease of native coronary artery without angina pectoris; I10 Essential (primary) hypertension; I25.2 Old myocardial infarction; D72.829 Elevated white blood cell count, unspecified; E78.5 Hyperlipidemia, unspecified; M79.672 Pain in left foot; E87.6 Hypokalemia; L97.529 Non-pressure chronic ulcer of other part of left foot with unspecified severity; I48.91 Unspecified atrial fibrillation; K21.9 Gastro-esophageal reflux disease without esophagitis; M06.372 Rheumatoid nodule, left ankle and foot; Z79.01 Long term (current) use of anticoagulants; R89.0 Abnormal level of enzymes in specimens from other organs, systems and tissues; H11.32 Conjunctival hemorrhage, left eye; B96.20 Unspecified Escherichia coli [E. coli] as the cause of diseases classified elsewhere; Z98.61 Coronary angioplasty status; Z88.8 Allergy status to other drugs, medicaments and biological substances; Z88.1 Allergy status to other antibiotic agents; Z91.040 Latex allergy status; Z79.82 Long term (current) use of aspirin; Z79.52 Long term (current) use of systemic steroids; R79.1 Abnormal coagulation profile; T45.516A Underdosing of anticoagulants, initial encounter; Y92.239 Unspecified place in hospital as the place of occurrence of the external cause
CPT/HCPCS: 2NBP; 75659; 36415; 36592; 71045; 73620-LT; 73650-LT; 74177; 81001; 82436; 87015; 87040; 87045; 87086; 87899; 87899-59; 90714; 93005; 93010; 97110-GO; 97116-GO; 97161-GP; 97530-GO; A9579; J1650; J3250; J7040; J7508; J7512